=== PATIENT | female | born 1940 | race Caucasian/White ===

== ENCOUNTER → 2018-06-09 13:44 | Outpatient (CLI) | payer MEDICARE, OTHER, SELFPAY ==
[2018-06-09 13:53] LABS: Bacteria Urine None Seen; RBC Urine None Seen (0-5/HPF); WBC Urine None Seen (0-5/HPF)
[2018-06-09 14:56] LABS: Appearance Urine UA CLEAR; Bilirubin Urine UA NEGATIVE (NEGATIVE); Color Urine UA YELLOW; Glucose Urine UA NEGATIVE (Normal); Ketones Urine UA NEGATIVE (NEGATIVE); Leukocyte Esterase Urine UA NEGATIVE (NEGATIVE); Nitrite Urine UA Negative (Negative); Occult Blood Urine UA NEGATIVE (Negative); Protein Urine UA NEGATIVE (Negative); Urobilinogen Urine UA 0.2 E.U./dL (0.2)
[2018-06-09 15:00] LABS: Add Manual Diff / Slide Review NO; Basophils Percent Auto 0.4 % (0-2); Eosinophils Percent Auto 0.8 % (2-4); Hemoglobin 14.1 g/dL (12.0-16.0); Lymphocytes Percent Auto 20.2 % (25-40); Mean Corpuscular HGB Conc 34.4 % (30-36); Mean Corpuscular Hemoglobin 30.6 PG (26-34); Monocytes Percent Auto 4.6 % (3-14); Neutrophils Absolute Auto 4300 /uL (3000-5900); Platelet Count 225 X10^3/uL (150-400); Red Blood Cell Count 4.61 X10^6/uL (4.0-5.2); Red Cell Distribution Width 13.9 % (11.6-14.8); White Blood Cell Count 5.9 X10^3/uL (4.5-11.0)
[2018-06-09 15:02] LABS: Culture Indicated Urine Cult Not Indicated; Urine Comments Microscopic Normal
[2018-06-09 15:30] LABS: BUN Creatinine Ratio 21.4 (6-22); Blood Urea Nitrogen 15 mg/dL (7-17); Calcium 9.3 mg/dL (8.4-10.2); Carbon Dioxide 32 mmol/L (22-32); Chloride 102 mmol/L (98-107); Estimated Glomerular Filt Rate > 60.0 mL/min (>60); Glucose 90 mg/dL (80-110); HEMOLYSIS < 15 (0-50); Potassium 4.4 mmol/L (3.4-5.1); Sodium 143 mmol/L (137-145)
[2018-06-09 15:43] LABS: Hemoglobin A1C% w Est Avg Glu 5.2 % (4.0-6.0)
== END ==
PROVIDERS: Visit Provider Orthopaedic Surgery
DX: Z01.818 Encounter for other preprocedural examination (principal); Z01.812 Encounter for preprocedural laboratory examination; N39.9 Disorder of urinary system, unspecified; R73.09 Other abnormal glucose
CPT/HCPCS: 36415; 80048; 81001; 83036; 85025; 93005

== ENCOUNTER 2018-06-15 05:57 | Inpatient (IN) | payer MEDICARE, OTHER, SELFPAY ==
[2018-06-14 07:52] VITALS: BMI 23.6
[2018-06-15] VITALS (16 sets, daily range): BP systolic 83–140; BP diastolic 50–86; PULSE 56–77; RESP 10–18; TEMP 35.7–36.6; O2SAT 95–98; BMI 23.6
--- NOTE | 2018-06-15 06:00 | DI.RAD.S_ITS ---
PROCEDURE: XR HIP W PEL IF DONE RT 2V INDICATIONS: postop TECHNIQUE: AP pelvis and lateral view of the right hip acquired. COMPARISON: SNO Outside Film, CR, XR PELVIS WITH BILATERAL HIPS 5 VIEWS, 03/30/2018, 15:43. FINDINGS: Bones: Patient is status post right hip arthroplasty, with hardware components in expected positions. The hip joint appears congruent. The visualized bony structures appear intact. Soft tissues: Overlying postoperative changes are noted. No suspicious soft tissue densities. IMPRESSION: Normal alignment after right total hip arthroplasty. Moderately severe to severe left hip degenerative osteoarthritis is noted, with near [id number] articulation. This has not progressed from the visualized appearance from pelvis and bilateral hip plain films (preoperative) 03/30/18. Dictated by: Myles Padilla M.D. on 06/15/2018 at 11:44 Approved by: Myles Padilla M.D. on 06/15/2018 at 11:45
[2018-06-15] MEDS: LACTATED RINGERS 1,000 ML 42 ML IV ×2 (06:55→11:28)
[2018-06-15] MEDS: VANCOMYCIN 1,000 MG/200 ML FROZ.PIGGY 200 MG IV (07:01)
[2018-06-15] MEDS: ACETAMINOPHEN 325 MG TABLET 975 MG PO ×3 (07:06→20:13)
[2018-06-15] MEDS: CELECOXIB 200 MG CAPSULE PO (07:07)
[2018-06-15] MEDS: PREGABALIN 75 MG CAPSULE PO (07:07)
[2018-06-15] MEDS: MIDAZOLAM 2 MG/2 ML VIAL IV (07:47)
--- NOTE | 2018-06-15 07:51 | PM.PREOP ---
Pre-operative Note Interval Note Pre-op Check: Yes History & Physical Reviewed by Physician and Yes Exam Performed Changes: No
--- NOTE | 2018-06-15 07:51 | PM.OP.1 ---
Operative Date/Time/Diagnoses Date of procedure: 06/15/18 Time of procedure: 10:30 Pre-op diagnosis: right hip OA Post-op diagnosis: same Procedure & Clinicians Procedure: right total hip arthroplasty Same procedure as scheduled: Yes Indications: The patient has had progressively worsening right hip pain with radiographic changes consistent with arthritis. Non-operative management has failed and the patient has requested total hip replacement. The risks, benefits and alternatives to surgery were discussed with the patient prior to proceeding. Risks discussed included, but were not limited to, failure to relieve pain, leg length discrepancy, dislocation, stiffness, infection, nerve damage, deep venous thrombosis, pulmonary embolism, stroke, coma, heart attack, permanent paralysis and , as well as the potential need for eventual revision of the prosthetic. Surgeon: Ryann Wilson Shoulder Puncher: Brian Gerard Anesthesia Type: General and Spinal Operative Notes Findings: Severe right hip osteoarthritis, good stability Closure Type: primary Specimen(s): none sent Implants & Drains: [employer] size 52 cup, 52 x 36 head, +0, size 6 standard anthology Estimated Blood Loss (mL): 300 Blood products transfused: none Procedure in detail: The patient was brought to the operating room. Patient was carefully positioned in the supine position. Time-out was performed and antibiotics were given. Anesthesia was induced. She was positioned in the on the table in order to allow hyperextension of the hip. Bilateral lower extremities were prepped and draped in a standard sterile fashion. An anterior incision was made 1 fingerbreadth lateral to the anterior superior iliac spine and extended distally towards the greater trochanter. Dissection was carried out through skin and subcutaneous tissues. The skin and subcutaneous tissues were carefully injected with Marcaine with epi. Superficial hemostasis was achieved. The fascia over the tensor fascia kelin was defined and incised with a knife. Two Allis clamps were used to grasp the fascia. Tensor fascia kelin was retracted laterally. A gelpi retractor was placed. Dissection was carried out down along the neck. The circumflex vessels were carefully identified and cauterized with the Aqua Mantis. There was good visualization of the femoral neck. A Cobra was placed superior to the neck and the gluteus fibers were carefully stripped from that superior aspect of the capsule. A 2nd retractor was placed along the inferior aspect of the neck. The rectus insertion along the capsule was released. A 3rd retractor that was then gently placed over the rim of the acetabulum under the rectus. Capsule was carefully incised and released from the intertrochanteric line circumferentially superior to the mid sagittal line and inferiorly to the mid sagittal line until the lesser trochanter was palpable. A tag stitch was placed both in the superior and inferior limb of the capsular insertion. Along the acetabulum capsule was also released up to the mid sagittal 12:00 position. Portion of the labrum was resected. A saw was used to perform an osteotomy at the level of the intertrochanteric line and the junction of the superior femoral neck leaving approximately 1 finger breath of residual inferior neck above the lesser trochanter. A 2nd cut was made along the femoral neck at the base of the head and a napkin ring of neck was removed. Corkscrew was placed in the femoral head and the head was removed without difficulty. Retractors were then repositioned around the acetabulum. Residual labrum was resected and additional osteophytes were removed. A Reamer that was 4 mm below the templated size was placed by hand in the acetabulum and it was reamed to centralize the acetabulum. It was then reamed up to 2 under the templated size fluoroscopy was brought in to confirm the position of the reaming and depth of reaming. I reamed 1 under the anticipated size and touch the rim with line to line reaming. A trial cup was placed and noted that it was appropriately sized and fluoroscopy confirmed position and depth. The component was open and inserted without difficulty fluoroscopic imaging was used to confirm that the cup had been adequately seated and was well positioned. Neutral poly liner was placed. The cup was tested and noted to be stable. Attention was then directed to the femur. The femur was gently hyperextended additional capsular release was performed as needed in order to allow adequate visualization of the proximal femur with elevation of the femur. Patient was placed in a hyperextended slightly abducted position with maximum external rotation. Box osteotome was used to check for any residual neck as well as sclerotic bone along the trochanter. [place] pepper was placed in the femur. Additional broaching was performed. Canal finder was used to determine the alignment of the canal and position. Size 1 broach was placed. The canal was then appropriately broached up to the templated size as long as there was adequate stability of the broach and serial advancement of the broach without excessive impingement. Specific attention was directed at avoiding varus attempting to direct the distal aspect of the approach more anteriorly and avoiding excessive anteversion. Trial reduction showed acceptable range of motion, good stability, no posterior impingement, jew of leg length and appropriate lateral shuck. I also hyperflexed the hip and checked that there was no impingement anteriorly and there was good stability with flexion, abduction and internal rotation. Final neutral poly was placed without difficulty. Marcaine and Exparel were injected. The stem was placed without difficulty. Repeat trial reduction and x-ray showed acceptable overall position, length, and no evidence of the femoral fracture. Final head was placed. Wound was meticulously irrigated with normal saline. The hip was reduced and additional Exparel and Marcaine were injected. The capsule was closed with interrupted nonabsorbable sutures. The fascia of the tensor was closed with interrupted and running Vicryl. No drain was placed. Any tensor fascia kelin muscle that appeared to be contused or injured which was a minimal amount was carefully resected. Capsule around the tensor was injected with Exparel and Marcaine. The skin was closed with barbed stitches for the subcutaneous tissue and skin. We also used surgical glue. The wound was dressed sterilely. Brief Betadine soak was also used and was meticulously irrigated with normal saline. Patient was transferred to recovery room in satisfactory condition. Complications: none Condition: stable Disposition: Acute Care Plan for aftercare: The patient will be maintained on a standard total hip replacement protocol with weight bearing as tolerated and anterior hip precautions. The patient will receive Aspirin and sequential compression devices for DVT prophylaxis. The patient will be discharged home when safe for the home environment.
[2018-06-15] MEDS: CEFAZOLIN 2 GM/100 ML FROZ.PIGGY IV ×3 (08:05→23:38)
--- NOTE | 2018-06-15 08:44 | SUR.OPER ---
Supine, head on pillow, torso on pink pad positioner. Iliac crest at flex of foot end of table. Gel roll under operative hip. Both arms secured on arm boards <90 degrees abduction.
[2018-06-15] MEDS: BUPIVACAINE LIPOSOME 266 MG/20 ML VIAL INJ (08:56)
[2018-06-15] MEDS: LIDOCAINE 1% W/EPI INJ 20 ML INJ (08:57)
[2018-06-15] MEDS: BUPIVACAINE 0.25% W/ EPI VIAL 50 ML INJ (10:38)
[2018-06-15] MEDS: POVIDONE-IODINE 15 ML, SODIUM CHLORIDE 0.9% 250 ML TOP (10:39)
--- NOTE | 2018-06-15 11:45 | SUR.PHASEI ---
NOTIFIED DR. DANIELS REGARDING LOW BP/ HE VERBALLY ORDERED 500ML LR FLUID BOLUS. NO FURTHER TREATMENT ADVISED AT THIS TIME
--- NOTE | 2018-06-15 12:06 | SUR.PHASEI ---
pATIENT PLACED IN REV TRENDELENBERG/ NO IMPROVEMENT IN BP. 87/[address] DYKES NOTIFIED NO FURTHER TREATMENT ADVISED. WANTS HER TO GO TO ROOM AND HAVE LUNCH. REPORT CALLED TO FLOOR AND PATIENT TRANSFERRED. AWAKE ALERT NO DISTRESS NOTED. PATIENT EATTING ICE CHIPS ON ROOM AIR.
[2018-06-15] MEDS: LACTATED RINGERS 1,000 ML 125 ML IV ×2 (13:16→20:37)
--- NOTE | 2018-06-15 13:24 | PC.ADMIT ---
Admission Note: Arrived to room 102 from PACU at 1230 via bed. Alert and oriented x2. Lungs clear bilaterally, oxygen sats 96% RA, instructed on use of IS. bp 90/53, pt is asymptomatic. Denies pain. Numbness to BLEs present post spinal extending from mid-thigh to toes. No void at this time. Pulses strong and palpable bilaterally, able to move all extremities. Aquacel dressing to right hip C/D/I. Oriented to room and to call light/bed/tv controls. Bed alarm on for safety. , John, at bedside. Belongings at bedside - declines any valuables to lock-up. The patient,Khadra Mendez,78 y/o, was given written information regarding hospital policies, unit procedures and contact persons. Patient's smoking status: Former smoker. Vital Signs - 8 hr 06/15/18 06:43 06/15/18 11:00 06/15/18 11:05 Temperature 97.1 F L 96.8 F L 97 F L Pulse Rate 77 69 65 Respiratory Rate 16 12 10 L Blood Pressure 140/86 83/50 L 86/55 L Pulse Oximetry 97 97 97 06/15/18 11:10 06/15/18 11:25 06/15/18 11:29 Temperature Pulse Rate 68 68 62 Respiratory Rate 10 L 13 10 L Blood Pressure 84/54 L 91/57 L 89/57 L Pulse Oximetry 97 98 97 06/15/18 11:35 06/15/18 11:42 06/15/18 11:47 Temperature 96.8 F L 97.4 F L Pulse Rate 63 65 65 Respiratory Rate 13 10 L 10 L Blood Pressure 88/54 L 90/53 L 83/54 L Pulse Oximetry 97 98 95 06/15/18 12:00 06/15/18 12:36 06/15/18 13:00 Temperature 97.8 F 96.4 F L 96.6 F L Pulse Rate 71 75 69 Respiratory Rate 12 12 14 Blood Pressure 93/57 L 119/55 L 90/53 L Pulse Oximetry 97 96 97
--- NOTE | 2018-06-15 16:01 | PC.NURSE ---
Pt alert and oriented, denies pain, denies nausea. Diet advanced to Regular for meal. Therapy notified pt requesting activity. Pt and family asking to be moved to a room on acute care. Coordinator notified. Report given to MICHELLE Jarvis. Pt moved to room 219.
--- NOTE | 2018-06-15 16:16 | PT.IIE ---
Current Diagnoses Bilateral primary osteoarthritis of hip (06/15/18) Surgery Performed Operation Date: 06/15/18 07:45 Actual Procedures p Total Hip Arthroplasty/Anterior Approach(Right) - Ryann Wilson MD Surgical History (Last Updated 06/14/18 @ 09:17 by Kaur Gleason RN) H/O: (Acute) History of appendectomy (Acute) History of colonoscopy (Acute) History of thoracotomy (Acute) Medical History (Last Reviewed 06/15/18 @ 16:52 by Edy Shafer, PT, [place]) Arthritis (Acute) Bilateral hip pain (Acute) Degenerative joint disease (Acute) Diverticulitis (Acute) GERD (gastroesophageal reflux disease) (Acute) History of hysterectomy (Acute) Impaired vision (Acute) Osteoporosis (Acute) Postmenopausal (Acute) Physical Therapy Inpatient Evaluation/Re-Eval M1 PT/OT-IP Prior Functional Status Start: 06/15/18 17:04 Freq: NEEDED Status: Active Protocol: Document 06/15/18 16:16 AB (Rec: 06/15/18 17:20 AB [email or web address]) Medical Review Prior Functional Status Medical History Reviewed Yes Communication able to make needs known Mobility and Gait stated that she is independent with all mobilities and ambulation without AD Social History Household Members spouse Living Arrangements House Number of Floors (Floors) Two Floors Number of Stairs To Enter/Railing? pt set up bed on main level has 2 steps to enter with L rail ascending Home Environment Standard Height Toilet Tub/Shower Home Equipment Front Wheel Walker Straight Cane Hand Held Shower Employment Status Retired Additional Social History Comment has counter next to toilet to assist her with sit to stand M2 PT-IP Current Condition Start: 06/15/18 17:04 Freq: NEEDED Status: Active Protocol: Document 06/15/18 16:16 AB (Rec: 06/15/18 17:20 AB [email or web address]) Physical Therapy Current Condition Current Condition Evaluation Date 06/15/18 Treatment Diagnosis s/p R MAGDALENA anterior approach Onset Date 06/15/18 Precautions Anterior Hip Precautions No Hip Extension No Hip External Rotation Weight Bearing Status Weight Bearing Status Weight Bear as Tolerated M3 PT-IP Subjective Start: 06/15/18 17:04 Freq: NEEDED Status: Active Protocol: Document 06/15/18 16:16 AB (Rec: 06/15/18 17:20 AB [email or web address]) Subjective Physical Therapy Visit Type Type Initial Evaluation Visit Start Time 16:16 Visit Stop Time 17:01 Total Visit Minutes 45 Number of SALES ENGINEERING MANAGER Visits 0 Physical Therapy Visit Comments Patient Comments pt agreeable to do PT Therapy Pain Assessment Pain Present Pain Present Denied Pain M4 PT-IP Mobility and Gait Start: 06/15/18 17:04 Freq: NEEDED Status: Active Protocol: Document 06/15/18 16:16 AB (Rec: 06/15/18 17:20 AB [email or web address]) PT-Bed Mobility Assessment Supine to Sit Supine to Sit Standby Assistance Sit to Supine Sit to Supine Standby Assistance PT-Transfer Assessment Sit to and From Stand Sit to and from Stand Standby Assistance Equipment Transfer Assistive Device Gait Belt Orthotic/Prosthetic Devices or Brace: No Gait Assessment Gait Gait Assistance Required: Contact Guard Assist Distance (Feet) 20 Able to Maintain Weight Bearing Status Yes During Gait Assistive Devices Assistive Device Gait Belt Front Wheeled Walker Orthotic/Prosthetic Devices or Brace: No Gait Deviations General Gait Pattern Decreased Stride Length Decreased Feet Clearance Factors Limiting Gait Function Factors Limiting Gait Function Decreased Activity Tolerance Decreased Strength Limited Range of Motion Pain Poor Balance Poor Safety Awareness Comments Gait Comments BP initially was 96/43 but increased to 102/57 during sitting and standing at end of tx session: BP 107/ 58 PT-Balance Assessment Sitting Balance and Reactions Static Sitting Balance Ability Good Dynamic Sitting Balance Ability Good Standing Balance and Reactions Static Standing Balance Ability Fair Dynamic Standing Balance Ability Fair Device Used FWW M5 PT-IP Objective Assessments Start: 06/15/18 17:04 Freq: NEEDED Status: Active Protocol: Document 06/15/18 16:16 AB (Rec: 06/15/18 17:20 AB [email or web address]) Orientation Orientation/Cognition Level of Alertness Alert Orientation Name Age Birthday Month Date Year Day of Week Place Situation Safety Awareness Understands Safety Issues Gross Range of Motion Lower Extremity ROM Assessment Within Functional Limits Strength Lower Extremity Strength Assessment Right Impaired Hip 4-/5 Knee 3+/5 M6 PT-IP Treatment Start: 06/15/18 17:04 Freq: NEEDED Status: Active Protocol: Document 06/15/18 16:16 AB (Rec: 06/15/18 17:20 AB [email or web address]) Physical Therapy Treatment Education Education Provided Precautions Weight Bearing Status Post-Op Packet Safety M7 PT-IP Assessment and Plan Start: 06/15/18 17:04 Freq: NEEDED Status: Active Protocol: Document 06/15/18 16:16 AB (Rec: 06/15/18 17:20 AB [email or web address]) PT Summary Assessment and Plan Potential Rehabilitation Potential Good Status of Condition at Evaluation Stable Summary Impairments Pain ROM Strength Balance Coordination Sensation Cognition Bed Mobility Transfers Gait Activity Tolerance Assessment Summary pt doing well with mobility and plans to go home with spouse to assist her. pt with decrease BP and c/o slight lightheadedness limiting mobility at this time. pt will likely improve during hospital stay and may go home when medically stable. stair climbing will be completed prior to d/c. Goals Bed Mobility Goal Standby Assistance Transfer Goal Standby Assistance Gait Goal Standby Assistance Gait Distance 100 Other Goals up/down 2 steps with L rail ascending Days to Meet Goals 2 Frequency of Treatment Frequency Of Treatment Twice a Day Treatment Plan Physical Therapy Treatment Plan Bed Mobility Training Transfer Training Gait Training Therapeutic Exercise Balance Retraining Post Op Education Discharge Planning Hot or Cold Pack Neuromuscular Re-ed Coordination Retraining Manual Therapy Other Recommendations and Next Treatment ambulation, stair climbing, Focus caregiver training Recommendations To Nursing Amount of Assist Needed 1 Person Assist Discharge Recommendations PT Discharge Recommendations Home with Assistance Outpatient PT
[2018-06-15] MEDS: ASPIRIN EC 81 MG TABLET PO (20:12)
[2018-06-15] MEDS: DOCUSATE 100 MG CAPSULE PO (20:13)
[2018-06-15] MEDS: INFLUENZA VACCINE 0.5 ML SYRINGE IM (20:15)
--- NOTE | 2018-06-15 22:52 | PC.NURSE ---
06/15 2200: very pleasant pt with at bedside. denies presence of pain but and states to have sensation back to lower extremities CMS intact with dressing c/d/i. Up to bathroom with one person assist. Has some low BPs but asymptomatic, otherwise VSS on RA
--- NOTE | 2018-06-16 00:28 | PC.NURSE ---
Pt. & spouse sound asleep, pt. snoring lightly. Will monitor & assess when she wakes up.
[2018-06-16 02:01] VITALS: BP 96/62; PULSE 59; RESP 16; TEMP 36.2; O2SAT 96
[2018-06-16 05:50] LABS: Hematocrit 33.3 % (36-46); Hemoglobin 11.4 g/dL (12.0-16.0)
[2018-06-16 06:10] VITALS: BP 101/54; PULSE 60; RESP 16; TEMP 36.2; O2SAT 97
[2018-06-16] MEDS: SODIUM CHLORIDE 0.9% FLUSH 10 ML IV (06:10)
[2018-06-16 07:00] VITALS: BP 111/57; PULSE 59; RESP 18; TEMP 36.6; O2SAT 99
--- NOTE | 2018-06-16 07:55 | PC.NURSE ---
Addendum entered by Mehreen Brock R.N. 06/16/18 11:59: concerns. IV was removed. Pt has all belongings packed up are going to wait and have lunch Original Note: Addendum entered by Meheren Brock R.N. 06/16/18 11:51: reviewed d/c instructions with patient and spouse at bedside, WBAT, keep incision dressing c/d/i able to shower with dressing in place. reviewed anterior hip precautions. reviewed medications with last dose. answered all questions and Original Note: Day shift Pt assisted from bed to bathroom, followed anterior hip precautions. pt moving really well denies any dizziness or lightheaded. dressing to left hip is c/d/i. 1P SBA with fww. spouse at bedside. +CMS with strong pulses. pt sitting up in chair call light within reach. rates pain 1/10 at this time after activity.
--- NOTE | 2018-06-16 09:30 | PT.IPTN ---
Current Diagnoses Bilateral primary osteoarthritis of hip (06/15/18) Surgery Performed Operation Date: 06/15/18 07:45 Actual Procedures p Total Hip Arthroplasty/Anterior Approach(Right) - Ryann Wilson MD Physical Therapy Treatment Note M2 PT-IP Current Condition Start: 06/15/18 17:04 Freq: NEEDED Status: Active Protocol: Document 06/15/18 16:16 AB (Rec: 06/15/18 17:20 AB [email or web address]) Physical Therapy Current Condition Current Condition Evaluation Date 06/15/18 Treatment Diagnosis s/p R MAGDALENA anterior approach Onset Date 06/15/18 Precautions Anterior Hip Precautions No Hip Extension No Hip External Rotation Weight Bearing Status Weight Bearing Status Weight Bear as Tolerated M3 PT-IP Subjective Start: 06/15/18 17:04 Freq: NEEDED Status: Active Protocol: Document 06/16/18 09:28 GGD (Rec: 06/16/18 11:37 GGD [email or web address]) Subjective Physical Therapy Visit Type Type Treatment Note Visit Start Time 09:00 Visit Stop Time 09:28 Total Visit Minutes 25 Number of INVESTIGATION DIVISION SERGEANT Visits 1 Physical Therapy Visit Comments Patient Comments Pt hopes to go home today. Therapy Pain Assessment Pain Present Pain Present Pain Reported Location Right Hip Scale Used Pt states it hurts a little. M4 PT-IP Mobility and Gait Start: 06/15/18 17:04 Freq: NEEDED Status: Active Protocol: Document 06/16/18 09:28 GGD (Rec: 06/16/18 11:37 GGD [email or web address]) PT-Bed Mobility Assessment Supine to Sit Supine to Sit Standby Assistance PT-Transfer Assessment Sit to and From Stand Sit to and from Stand Standby Assistance Equipment Transfer Assistive Device Gait Belt Gait Assessment Gait Gait Assistance Required: Contact Guard Assist Distance (Feet) 350 Assistive Devices Assistive Device Gait Belt Front Wheeled Walker Gait Deviations General Gait Pattern Decreased Stride Length Decreased Feet Clearance Factors Limiting Gait Function Factors Limiting Gait Function Decreased Activity Tolerance Decreased Strength Limited Range of Motion Pain Stair Climbing Assessment Evaluation Level of Assist On Stairs Contact Guard Assistance Devices Stair Climbing Assistive Devices Left Railing Technique/Endurance Stair Climbing Direction Ascend and Descend Stair Climbing Technique Step to Step Number of Steps Climbed 3 Query Text: Stair Climbing Set # Repetitions (reps) 1 M5 PT-IP Objective Assessments Start: 06/15/18 17:04 Freq: NEEDED Status: Active Protocol: Document 06/15/18 16:16 AB (Rec: 06/15/18 17:20 AB [email or web address]) Orientation Orientation/Cognition Level of Alertness Alert Orientation Name Age Birthday Month Date Year Day of Week Place Situation Safety Awareness Understands Safety Issues Gross Range of Motion Lower Extremity ROM Assessment Within Functional Limits Strength Lower Extremity Strength Assessment Right Impaired Hip 4-/5 Knee 3+/5 M6 PT-IP Treatment Start: 06/15/18 17:04 Freq: NEEDED Status: Active Protocol: Document 06/16/18 09:28 GGD (Rec: 06/16/18 11:37 GGD [email or web address]) Physical Therapy Treatment Education Education Provided Precautions M7 PT-IP Assessment and Plan Start: 06/15/18 17:04 Freq: NEEDED Status: Active Protocol: Document 06/16/18 09:28 GGD (Rec: 06/16/18 11:37 GGD [email or web address]) PT Summary Assessment and Plan Summary Assessment Summary Pt improving with mobility. She was safe and stable with gait and stair mobility. She has good awareness of her hip precautions. Frequency of Treatment Frequency Of Treatment Twice a Day Treatment Plan Other Recommendations and Next Treatment ambulation, stair climbing, Focus caregiver training Recommendations To Nursing Amount of Assist Needed 1 Person Assist Discharge Recommendations PT Discharge Recommendations Home with Assistance Outpatient PT
[2018-06-16] MEDS: ASPIRIN EC 81 MG TABLET PO (09:41)
[2018-06-16] MEDS: DOCUSATE 100 MG CAPSULE PO (09:41)
[2018-06-16] MEDS: ACETAMINOPHEN 325 MG TABLET 975 MG PO (09:41)
--- NOTE | 2018-06-16 11:31 | PM.DS.1 ---
History of Present Illness Date Patient Seen: 06/16/18 Time Patient Seen: 09:17 Chief complaint: [id number] Narrative: Pain is mild. Denies fever chills. No nausea vomiting. She has been ambulating with assistance to the restroom. home to assist her. Patient feels ready to be discharged home today. Otherwise without complaints. Discharge Providers Date of admission: 06/15/18 05:57 Consults: 06/15/18 12:37 Consult to Discharge Planning Routine Comment: Consult to Physical Therapy Evaluate & Treat Comment: Physician Instructions: post op MAGDALENA protocol Consult to Respiratory Therapy Evaluate & Treat Comment: Physician Instructions: Evaluate and treat 06/15/18 13:03 Consult to Pastoral Services Routine Comment: reflexed order from admission assessment. Discharge provider: Brian Gerard PA-C Summary Discharge Diagnosis: Status post right total hip arthroplasty, anterior approach Hospital Course: Patient has had progressively worsening right hip pain with radiographic changes consistent with severe osteoarthritis. Non op management has failed and patient has requested total hip replacement. Patient consented to the same. Patient taken to the operating room underwent a right total hip arthroplasty. Patient back in her room recovering well and is in stable condition. Patient received general and spinal anesthesia. Estimated blood loss 300 mL. Exam Vital Signs (past 8 hours): - 06/16/18 06:10 06/16/18 07:00 Temperature 97.2 F L 97.8 F Pulse Rate 60 59 L Respiratory Rate 16 18 Blood Pressure 101/54 L 111/57 L Pulse Oximetry 97 99 Oxygen Delivery Method Room Air Oxygen Flow Rate 0 Narrative Exam Narrative: 78-year-old female sitting in bedside chair in no apparent distress. Right hip dressing is clean, dry and intact. Motor functions intact distal right lower extremity. Right leg is warm and dry. Sensation grossly intact to light touch. Objective Labs Result Diagrams: 06/16/18 05:25 Labs: Laboratory Results - last 24 hr 06/15/18 06/16/18 12:30 05:25 Hgb 11.4 L Hct 33.3 L Nasal Screen MRSA (PCR) Negative for mrsa Discharge Plan Discharge Plan Patient Disposition: Home Discharge comment: DC home today Discharge Med Rec/Prescriptions Prescriptions: Continue multivitamin Tablet 1 tab PO DAILY RF: 0 glucosamine sulfate [Glucosamine] 500 mg Tablet 1,500 mg PO DAILY RF: 0 vitamin B complex Tablet 1 tab PO DAILY RF: 0 cholecalciferol (vitamin D3) [Vitamin D3] 2,000 unit Capsule 2,000 unit PO DAILY RF: 0 omega 0-vzz-[id number]-fish oil [Fish Oil] 1,000 mg (120 mg-180 mg) Capsule 1,000 mg PO DAILY RF: 0 naproxen sodium [Aleve] 220 mg Tablet 440 mg PO BID RF: 0 biotin 5,000 mcg Tablet,Disintegrating 5,000 mcg PO DAILY RF: 0 calcium carbonate [Calcium 600] 600 mg calcium (1,500 mg) Tablet 600 mg PO DAILY RF: 0 Follow up/Referrals: Ryann Wilson MD [Physician] - (SNO in 5-7 days) Provider Discharge Instructions Diet: Diet as Tolerated Activity: WBAT, avoid hyperextension of hip, no straight leg raises for 6 weeks Cold/Heat Therapy: Ice as needed Skin/Wound/Dressing Care Report to your healthcare provider any signs of infection, such as:: chills, fever, night sweats, increased pain and unusual drainage Dressing: Keep clean and dry Visit Report/Discharge Packet Visit Report Forms: Stroke Signs & Symptoms Discharge Data Attending Provider: Ryann Wilson Admit Date/Time: 06/15/18 05:57 Quality VTE Deep Vein Thrombosis/Pulmonary Embolism Present on Admission: No
[2018-06-16] MEDS: IBUPROFEN 600 MG TABLET PO (11:40)
--- NOTE | 2018-06-16 11:50 | CM.DANOTE ---
Discharge Planning/Care Management DCP: assessment: case received, EMR reviewed, d/c to home order noted by glenna Gerard. Met with pt and her this morning. Introduced self and role. Pt is a 78 year old female who admitted yesterday for a planned R MAGDALENA: anterior. Surgeon: Jim Wilson Payer: Medicare and [facility] PCP: Dr. Barbara Michel She worked with PT yesterday and again this morning and has been ok'd for d/c home. Pt confirms she has outpt PT all set at [facility]. P: home today CM Discharge Assessment Start: 06/16/18 11:48 Freq: Status: Active Protocol: Document 06/16/18 11:48 ITV (Rec: 06/16/18 11:49 ITV [id number]) Discharge Planning Assessment Advance Directives? Yes Advance Directives on File No History Provided By Patient Family Member Medical Record Prior Living Arrangements House Household Members spouse Whiteboard Updated in Patient Room with Yes name and ext. # of Pipeliner Review Status In Process Next Review Type Continued Stay Review
== END 2018-06-16 13:35 | disposition home or self-care (01) | DRG 470 ==
LOC: AC 08:05 → ICU 10:49 → AC 16:11
PROVIDERS: Admitting Provider Orthopaedic Surgery; Visit Provider Orthopaedic Surgery
PROC: 0SR902Z Replacement of Right Hip Joint with Metal on Polyethylene Synthetic Substitute, Open Approach (ICD-10-PCS; CPT 27130; principal; 2018-06-15 07:45)
DX: M16.11 Unilateral primary osteoarthritis, right hip (principal); M81.0 Age-related osteoporosis without current pathological fracture; K21.9 Gastro-esophageal reflux disease without esophagitis
CPT/HCPCS: 36415; 73502; 76001; 85014; 85018; 87797; 90471; 90656; 97116; 97161; 97530; C1776; C9290; J0690; J2250; J2274; J3010; J3370; Q2038

== ENCOUNTER 2018-12-16 06:09 | Inpatient (IN) | payer MEDICARE, OTHER, SELFPAY ==
[2018-06-15 12:40] VITALS: BMI 23.6
[2018-11-11 10:17] VITALS: BMI 23.6
[2018-12-16] VITALS (15 sets, daily range): BP systolic 87–151; BP diastolic 43–92; PULSE 59–82; RESP 10–18; TEMP 35.9–36.8; O2SAT 95–100; BMI 24.5
--- NOTE | 2018-12-16 | DI.RAD.S_ITS ---
PROCEDURE: XR HIP W PEL IF DONE LT 2V INDICATIONS: INTEROPERATIVE LEFT HIP TECHNIQUE: 3 view(s) of the hip acquired. COMPARISON: [facility] [place], [place], XR PELVIS WITH BILATERAL LATERAL HIPS, 07/30/2018, 11:08. FINDINGS: 3 intraoperative fluoroscopy images demonstrate left hip arthroplasty and prosthesis placement. IMPRESSION: Left hip arthroplasty and prosthesis placement. Dictated by: Isaac Lara M.D. on 12/16/2018 at 11:46 Approved by: Isaac Lara M.D. on 12/16/2018 at 11:47
--- NOTE | 2018-12-16 06:00 | DI.RAD.S_ITS ---
PROCEDURE: XR HIP W PEL IF DONE LT 2V INDICATIONS: prosthesis placement TECHNIQUE: 2 view(s) of the hip acquired. COMPARISON: [facility], [place], XR HIP W PEL IF DONE LT 2V, 12/16/2018, 8:26. FINDINGS: Bones: Patient is status post left hip arthroplasty, with hardware components in expected positions. The hip joint appears congruent. The visualized bony structures appear intact. Soft tissues: Overlying postoperative changes are noted. No suspicious soft tissue densities. IMPRESSION: Expected postoperative alignment left hip arthroplasty. Dictated by: Omar Austin M.D. on 12/16/2018 at 12:49 Approved by: Omar Austin M.D. on 12/16/2018 at 12:49
[2018-12-16] MEDS: VANCOMYCIN 1,000 MG/200 ML FROZ.PIGGY 200 MG IV (06:50)
[2018-12-16] MEDS: LACTATED RINGERS 1,000 ML 42 ML IV ×2 (06:50→10:56)
[2018-12-16] MEDS: ACETAMINOPHEN 325 MG TABLET 975 MG PO ×3 (07:13→20:38)
[2018-12-16] MEDS: PREGABALIN 75 MG CAPSULE PO (07:13)
[2018-12-16] MEDS: CELECOXIB 200 MG CAPSULE PO (07:13)
[2018-12-16] MEDS: CEFAZOLIN 2 GM/100 ML FROZ.PIGGY IV ×3 (07:55→23:50)
--- NOTE | 2018-12-16 08:49 | SUR.OPER ---
Head on pillow. Supine on fracture table with operative leg secured in traction boots/hana table.left Arm across chest, secured with sheet.right arm on armboard
[2018-12-16] MEDS: LIDOCAINE 1% W/EPI INJ 20 ML INJ (09:00)
[2018-12-16] MEDS: BUPIVACAINE 0.25% W/ EPI 50 ML VIAL 60 ML INJ (11:11)
[2018-12-16] MEDS: BUPIVACAINE LIPOSOME 266 MG/20 ML VIAL INJ (11:12)
[2018-12-16] MEDS: POVIDONE-IODINE 15 ML, SODIUM CHLORIDE 0.9% 250 ML TOP (11:12)
--- NOTE | 2018-12-16 12:23 | SUR.PHASEI ---
REPORT CALLED TO MICHELLE HORN ON ACUTE CARE FLOOR. PT IN STABLE CONDITION, VSS. IV SITE CLEAR AND INFUSING WITHOUT DIFFICULTLY. PT DENIES ANY PAIN/DISCOMFORT OR NAUSEA. PT DRSG TO SURGICAL SITE C/D/I. DULL SENSTATION R/T SPINAL, +PULSE AND +STRENGTH. PT TOLERATING ICE CHIPS WITHOUT ANY DIFFICULTLY. PT RESTING IN BED AND TALKING TO RN WHEN SPOKEN TO.
--- NOTE | 2018-12-16 12:37 | SUR.PHASEI ---
PT TRANSFERRED TO ACUTE CARE FLOOR IN STABLE CONDITION. PT ALERT AND TALKING TO RN DURING TRANSPORT. BEDSIDE REPORT GIVEN TO MICHELLE HORN UPON ARRIVAL. TRANSFERRED CARE OF PT TO MICHELLE HORN AT THAT TIME.
[2018-12-16] MEDS: LACTATED RINGERS 1,000 ML 125 ML IV ×2 (12:54→21:12)
--- NOTE | 2018-12-16 16:47 | PT.IIE ---
Current Diagnoses Unilateral primary osteoarthritis, left hip (12/16/18) Surgery Performed Operation Date: 12/16/18 07:45 Actual Procedures p Total Hip Arthroplasty/Anterior Approach(Left) - Ryann Wilson MD Surgical History (Last Updated 11/11/18 @ 11:22 by Patricia Blum, RN) History of total right hip arthroplasty (Acute 06/15/18) H/O: (Acute) History of appendectomy (Acute) History of colonoscopy (Acute) History of thoracotomy (Acute ~1996) Medical History (Last Updated 11/11/18 @ 11:22 by Patricia Blum RN) Pneumonia (Acute) Arthritis (Acute) Bilateral hip pain (Acute) Degenerative joint disease (Acute) Diverticulitis (Acute) GERD (gastroesophageal reflux disease) (Acute) History of hysterectomy (Acute ~1998) Impaired vision (Acute) Osteoporosis (Acute) Postmenopausal (Acute) Physical Therapy Inpatient Evaluation/Re-Eval M1 PT/OT-IP Prior Functional Status Start: 12/16/18 16:21 Freq: NEEDED Status: Active Protocol: Document 12/16/18 16:21 [facility] (Rec: 12/16/18 16:47 [facility] [email or web address]) Medical Review Prior Functional Status Medical History Reviewed Yes Mobility and Gait previous Right total hip anterior replacement in May 2018 and is doing really well with mobility and gait on the right side Social History Household Members spouse Living Arrangements House Number of Floors (Floors) One Floor Number of Stairs To Enter/Railing? There are 2 stairs to go into the house and two stairs to go up to the shower Home Equipment Front Wheel Walker Employment Status Retired M2 PT-IP Current Condition Start: 12/16/18 16:21 Freq: NEEDED Status: Active Protocol: Document 12/16/18 16:21 [facility] (Rec: 12/16/18 16:47 [facility] [email or web address]) Physical Therapy Current Condition Current Condition Evaluation Date 12/16/18 Treatment Diagnosis Left anterior MAGDALENA Precautions Anterior Hip Precautions No Hip Extension No Hip External Rotation Weight Bearing Status Weight Bearing Status Weight Bear as Tolerated M3 PT-IP Subjective Start: 12/16/18 16:21 Freq: NEEDED Status: Active Protocol: Document 12/16/18 16:21 [facility] (Rec: 12/16/18 16:47 [facility] [email or web address]) Subjective Physical Therapy Visit Type Type Initial Evaluation Visit Start Time 15:30 Visit Stop Time 16:00 Total Visit Minutes 30 Physical Therapy Visit Comments Patient Comments The patient is alert and sitting up in bed, she reports she currently has no pain but has felt a little nausea and a little light headed Patient Goals The patients goals with her MAGDALENA were to decrease pain with weightbearing activities. Her goal is to be D/C home tommorrow with her . She starts outpatient PT on Therapy Pain Assessment Pain When Pain Assessed At Rest Pain Present Pain Present Denied Pain M4 PT-IP Mobility and Gait Start: 12/16/18 16:21 Freq: NEEDED Status: Active Protocol: Document 12/16/18 16:21 [facility] (Rec: 12/16/18 16:47 [facility] [email or web address]) PT-Bed Mobility Assessment Rolling Type of Rolling Roll to Left Level of Assist Standby Assistance Supine to Sit Supine to Sit Standby Assistance Sit to Supine Sit to Supine Minimal Assistance Scooting Scooting Up and Down in Bed Standby Assistance PT-Transfer Assessment Sit to and From Stand Sit to and from Stand Contact Guard Assistance Equipment Transfer Assistive Device Gait Belt Transfer Ability Level of Assist Standby Assistance Gait Assessment Gait Gait Assistance Required: Contact Guard Assist Able to Maintain Weight Bearing Status Yes During Gait Assistive Devices Assistive Device Gait Belt Front Wheeled Walker Gait Deviations General Gait Pattern Step-to Gait Factors Limiting Gait Function Factors Limiting Gait Function Decreased Sensation Decreased Strength Comments Gait Comments Khadra stood at the edge of the bed for 3 min as she felt a bit light headed, she then began to feel as if she was voiding, she was able to walk to the bathroom with the fww and CGA for toileting, she returned to bed with CGA for gait and no increase in nausea or light headed symptoms Stair Climbing Assessment Comments Stair Climbing Comments Needs to be able to do 2 steps for home PT-Balance Assessment Sitting Balance and Reactions Static Sitting Balance Ability Normal Dynamic Sitting Balance Ability Normal Standing Balance and Reactions Static Standing Balance Ability Good Dynamic Standing Balance Ability Good Device Used fww M5 PT-IP Objective Assessments Start: 12/16/18 16:21 Freq: NEEDED Status: Active Protocol: Document 12/16/18 16:21 [facility] (Rec: 12/16/18 16:47 [facility] [email or web address]) Orientation Orientation/Cognition Level of Alertness Alert Orientation Name Age Birthday Month Date Year Day of Week Place Situation Language Function Ability No Deficits Noted Safety Awareness Understands Safety Issues Memory Description No Deficits Noted Strength Lower Extremity Strength Assessment Left Impaired Sensation Assessment Sensation Gross Sensation Left LE Impaired Comments Sensation Comments still a little numb from nerve block with surgery Muscle Tone Muscle Tone WNL Yes M6 PT-IP Treatment Start: 12/16/18 16:21 Freq: NEEDED Status: Active Protocol: Document 12/16/18 16:21 [facility] (Rec: 12/16/18 16:47 [facility] [email or web address]) Physical Therapy Treatment Exercises Exercises Ankle Pumps Quad Sets Heel Slides Education Education Provided Precautions Weight Bearing Status Post-Op Packet Safety M7 PT-IP Assessment and Plan Start: 12/16/18 16:21 Freq: NEEDED Status: Active Protocol: Document 12/16/18 16:21 [facility] (Rec: 12/16/18 16:47 [facility] [email or web address]) PT Summary Assessment and Plan Potential Rehabilitation Potential Excellent Status of Condition at Evaluation Stable Summary Impairments Pain ROM Strength Balance Assessment Summary Khadra is day one s/p L MAGDALENA and doing very well. She did not have pain before or following PT today. She is still a little numb in the left LE from the nerve block. She was able to transfer to sitting with SBA, sit-stand transfer with CGA, she ambulated to the bathroom with fww and CGA to void. She was able to void and then ambulated back to bed with CGA . She needed Min A to help with left leg getting back in bed. She was educated on her MAGDALENA anterior approach precautions and exercises. She was given a post op packet with instructions for home. Ice was placed over the left hip and call light was placed within reach. Her was present for her treatment. The patient would like education on getting out on the right side of the bed as this is the side she sleeps on at home. She will also need stair training prior to DC. Goals Bed Mobility Goal Independent Gait Goal Contact Guard Assistance Gait Distance 50 feet Other Goals The patient is able to ambulate up 2 or more stairs prior to DC home Frequency of Treatment Frequency Of Treatment Twice a Day Treatment Plan Physical Therapy Treatment Plan Bed Mobility Training Transfer Training Gait Training Therapeutic Exercise Post Op Education Hot or Cold Pack Other Recommendations and Next Treatment Please work on transfers out Focus of bed as the patient would like to try getting out on the right side due to her sleeping on this side of the bed. Work on stairs prior to DC. The patient would like to go home tomorrow 12/17/18 Recommendations To Nursing Amount of Assist Needed 1 Person Assist Discharge Recommendations PT Discharge Recommendations Home Other Discharge Recommendations The patient has outpatient PT scheduled starting 12/13/18
[2018-12-16] MEDS: ONDANSETRON 4 MG/2 ML INJ IV (17:56)
--- NOTE | 2018-12-16 18:44 | PM.PREOP ---
Pre-operative Note Interval Note History & Physical reviewed/Exam performed by Physician: Yes Changes to H&P: No
--- NOTE | 2018-12-16 18:48 | P.OP_ITS ---
Operative Date/Time/Diagnoses Date of procedure: 12/16/18 Time of procedure: 08:03 Pre-op diagnosis: Left hip osteoarthritis Post-op diagnosis: same Procedure & Clinicians Procedure: Left total hip arthroplasty anterior approach Same procedure as scheduled: Yes Indications: The patient has had progressively worsening left hip pain with radiographic changes consistent with arthritis. Non-operative management has failed and the patient has requested total hip replacement. The risks, benefits and alternatives to surgery were discussed with the patient prior to proceeding. Risks discussed included, but were not limited to, failure to relieve pain, leg length discrepancy, dislocation, stiffness, infection, nerve damage, deep venous thrombosis, pulmonary embolism, stroke, coma, heart attack, permanent paralysis and , as well as the potential need for eventual revision of the prosthetic. Surgeon: Ryann Wilson Boat Designer: Luz Smith Anesthesia Type: General and Spinal Operative Notes Findings: Severe left hip arthritis, good stability Closure Type: primary Specimen(s): none sent Prosthetic devices, grafts, tissues, transplants, or devices: [employer] R3 52 cup, size 6 anthology standard offset, minus 3 x 36 poly Oxinium Estimated Blood Loss (mL): 250 Blood products transfused: none Procedure in detail: The patient was brought to the operating room. Patient was carefully positioned in the supine position. Time-out was performed and antibiotics were given. Anesthesia was induced. She was positioned in the on the hana table in order to allow hyperextension of the hip. The left lower extremity was prepped and draped in a standard sterile fashion. An anterior left hip incision was made 1 fingerbreadth lateral to the anterior superior iliac spine and extended distally towards the greater trochanter. Dissection was carried out through skin and subcutaneous tissues. The skin and subcutaneous tissues were carefully injected with Lidocaine with epi. Superficial hemostasis was achieved. The fascia over the tensor fascia kelin was defined and incised with a knife. Two Allis clamps were used to grasp the fascia. Tensor fascia kelin was retracted laterally. A gelpi retractor was placed. Dissection was carried out down along the neck. The circumflex vessels were carefully identified and cauterized with the Aqua Mantis. There was good visualization of the femoral neck. A Cobra was placed superior to the neck and the gluteus fibers were carefully stripped from that superior aspect of the capsule. A 2nd retractor was placed along the inferior aspect of the neck. The rectus insertion along the capsule was partially released. Capsule was carefully incised and released from the intertrochanteric line circumferentially superior to the mid sagittal line and inferiorly to the mid sagittal line until the lesser trochanter was palpable. A tag stitch was placed both in the superior and inferior limb of the capsular insertion. Along the acetabulum capsule was also released up to the mid sagittal 12:00 position. A portion of the labrum was resected. A saw was used to perform an osteotomy at the level of the intertrochanteric line and the junction of the superior femoral neck leaving approximately 1 finger breath of residual inferior neck above the lesser trochanter. A 2nd cut was made along the femoral neck at the base of the head and a napkin ring of neck was removed. Corkscrew was placed in the femoral head and the head was removed without difficulty. Retractors were then repositioned around the acetabulum. Residual labrum was resected and additional osteophytes were removed. A reamer that was 4 mm below the templated size was placed by hand in the acetabulum and it was reamed to centralize the acetabulum. It was then reamed up to 2 under the templated size and fluoroscopy was brought in to confirm the position of the reaming and depth of reaming. I reamed 1 under the anticipated size and touched the rim with line to line reaming. A trial cup was placed and noted that it was appropriately sized and fluoroscopy confirmed position and depth. The component was open and inserted without difficulty fluoroscopic imaging was used to confirm that the cup had been adequately seated and was well positioned. Neutral poly trial liner was placed. The cup was tested and noted to be stable. Attention was then directed to the femur. The femur was gently hyperextended additional capsular release was performed as needed in order to allow adequate visualization of the proximal femur with elevation of the femur. No traction was used. Using the table the leg was very gently extended and slowly externally rotated as well as aducted. Patient was placed in a hyperextended slightly abducted position with maximum external rotation. Box osteotome was used to check for any residual neck as well as sclerotic bone along the trochanter. [place] pepper was placed in the femur. Additional broaching was performed. Canal finder was used to determine the alignment of the canal and position. Size 1 broach was placed. The canal was then appropriately broached up to the templated size as long as there was adequate stability of the broach and serial advancement of the broach without excessive impingement. Specific attention was directed at avoiding varus attempting to direct the distal aspect of the broach more anteriorly and avoiding excessive anteversion. Trial reduction showed acceptable range of motion, good stability, no posterior impingement, congregation of leg length and appropriate lateral shuck. I also hyperflexed the hip and checked that there was no impingement anteriorly and there was good stability with flexion, abduction and internal rotation. Marcaine and Exparel were injected. The stem was placed without difficulty. R epeat trial reduction and x-ray showed acceptable overall position, length, and no evidence of the femoral fracture. Final head was placed. Wound was meticulously irrigated with normal saline. The hip was reduced and additional Exparel and Marcaine were injected. The capsule was closed with interrupted nonabsorbable sutures. The fascia of the tensor was closed with interrupted and running Vicryl. No drain was placed. Any tensor fascia kelin muscle that appeared to be contused or injured which was a minimal amount was carefully resected. Capsule around the tensor was injected with Exparel and Marcaine. The skin was closed with barbed stitches for the subcutaneous tissue and skin. We also used surgical glue. The wound was dressed sterilely. Brief Betadine soak was also used and was meticulously irrigated with normal saline. Patient was transferred to recovery room in satisfactory condition. Complications: none Condition: stable Disposition: Acute Care Plan for aftercare: The patient will be maintained on a standard total hip replacement protocol with weight bearing as tolerated and anterior hip precautions. The patient will receive Aspirin and sequential compression devices for DVT prophylaxis. The patient will be discharged home when safe for the home environment.
[2018-12-16] MEDS: ASPIRIN EC 81 MG TABLET PO (20:39)
[2018-12-16] MEDS: DOCUSATE 100 MG CAPSULE PO (20:39)
[2018-12-17 06:00] VITALS: BP 111/66; PULSE 65; RESP 16; TEMP 37.2; O2SAT 99
[2018-12-17 06:48] LABS: Hematocrit 35.5 % (36-46); Hemoglobin 11.9 g/dL (12.0-16.0)
[2018-12-17 07:00] VITALS: BP 118/75; PULSE 57; RESP 16
--- NOTE | 2018-12-17 07:32 | PM.DS.1 ---
History of Present Illness Date Patient Seen: 12/17/18 Chief complaint: LT MAGDALENA 12/16 Narrative: Patient seen bedside status post left anterior total hip arthroplasty postop day 1. Patient is doing well, her pain is well controlled and she has been up and about with a walker. She denies any nausea vomiting chest pain or shortness of breath. She would like to go home today. Discharge Providers Date of admission: 12/16/18 06:09 Discharge Date: 12/17/18 Consults: 12/16/18 06:00 Consult to Anesthesiology Routine Comment: Consulting Provider: Anesthesiologist Reason for consultation: Regional block for post operative pain control 12/16/18 12:44 Consult to Discharge Planning Routine Comment: Consult to Physical Therapy Evaluate & Treat Comment: Physician Instructions: post op MAGDALENA protocol Consult to Respiratory Therapy Evaluate & Treat Comment: Physician Instructions: Evaluate and treat Discharge provider: Luz Smith PA-C Summary Discharge Diagnosis: Left hip osteoarthritis Hospital Course: Patient was admitted to the hospital status post left total anterior hip arthroplasty with Dr. Wilson on 12/16/2018. Patient tolerated the procedure well with no major complications. They were transferred to the acute care floor where they were placed on the standard joint replacement pathway and protocol. They were seen by physical therapy who recommended that they be discharged home. They were stable and ready for discharge on 12/17/18. Status at Discharge Cognitive/behavioral status at discharge: oriented Functional status at discharge: uses cane/walker Overall status at discharge: patient is progressing back to baseline Time Spent with Patient Less than 30 minutes Exam Vital Signs (past 8 hours): - 12/17/18 06:00 12/17/18 07:00 Temperature 98.9 F Pulse Rate 65 57 L Respiratory Rate 16 16 Blood Pressure 111/66 118/75 Pulse Oximetry 99 Oxygen Delivery Method Room Air Oxygen Flow Rate 0 Narrative Exam Narrative: Well-developed, well-nourished, no acute distress. Alert and oriented to person, place, and time. Dressing on operative hip is clean, dry, and intact with no signs of drainage. Minimal erythema and generalized swelling around the surgical site. Neurovascularly intact in the operative extremity with a soft and compressible calf. Range of motion of the operative ankle intact. Objective Labs Result Diagrams: 12/17/18 06:06 Labs: Laboratory Results - last 24 hr 12/17/18 06:06 Hgb 11.9 L Hct 35.5 L Discharge Plan Discharge Plan Patient Disposition: Home Discharge Med Rec/Prescriptions Prescriptions: New acetaminophen 325 mg Tablet 975 mg PO TID Qty: 0 RF: 0 aspirin 81 mg Tablet,Delayed Release (Dr/Ec) 81 mg PO BID Qty: 0 RF: 0 docusate sodium 100 mg Capsule 100 mg PO BID Qty: 0 RF: 0 ondansetron 4 mg Tablet,Disintegrating 4 mg PO Q4HR PRN (Reason: Nausea) Qty: 0 RF: 0 oxycodone 5 mg Tablet 5 mg PO Q4-6H PRN (Reason: Pain, Moderate (4-6)) Qty: 0 RF: 0 Continued multivitamin Tablet 1 tab PO DAILY RF: 0 glucosamine sulfate [Glucosamine] 500 mg Tablet 1,500 mg PO DAILY RF: 0 vitamin B complex Tablet 1 tab PO DAILY RF: 0 cholecalciferol (vitamin D3) [Vitamin D3] 2,000 unit Capsule 2,000 unit PO DAILY RF: 0 omega 7-hsj-fbm-fish oil [Fish Oil] 1,000 mg (120 mg-180 mg) Capsule 1,000 mg PO DAILY RF: 0 biotin 5,000 mcg Tablet,Disintegrating 5,000 mcg PO DAILY RF: 0 calcium carbonate [Calcium 600] 600 mg calcium (1,500 mg) Tablet 600 mg PO DAILY RF: 0 Follow up/Referrals: Ryann Wilson MD [Physician] - (In 5-7 days at previously scheduled appointment) Provider Discharge Instructions Diet: Diet as Tolerated Activity: Weight bearing as tolerated, follow anterior hip precautions. Use walker until stable on feet Cold/Heat Therapy: Apply ice to affected area for 20 minutes at a time at least hourly while awake. Skin/Wound/Dressing Care Report to your healthcare provider any signs of infection, such as:: chills, fever, night sweats, increased pain, unusual drainage and unusual redness Dressing: Keep dressing clean, dry, and intact. May shower with it in place but no soaking. Visit Report/Discharge Packet Instructions: DI for Hip Replacement, Ondansetron, Oxycodone Discharge Data Attending Provider: Ryann Wilson Admit Date/Time: 12/16/18 06:09 Discharges patient from system. Discharge Date/Time: 12/17/18 09:42 Quality VTE Deep Vein Thrombosis/Pulmonary Embolism Present on Admission: No
[2018-12-17] MEDS: DOCUSATE 100 MG CAPSULE PO (07:48)
[2018-12-17] MEDS: ACETAMINOPHEN 325 MG TABLET 975 MG PO (07:48)
[2018-12-17] MEDS: FISH OIL 1,000 MG CAPSULE 1000 MG PO (07:48)
[2018-12-17] MEDS: ASPIRIN EC 81 MG TABLET PO (07:49)
[2018-12-17] MEDS: VITAMIN B COMPLEX 1 CAPSULE 1 CAP PO (07:49)
[2018-12-17] MEDS: MULTIVITAMIN 1 TABLET 1 TAB PO (07:49)
[2018-12-17] MEDS: CHOLECALCIFEROL (VITAMIN D3) 1,000 UNIT TABLET 2000 UNIT PO (07:49)
[2018-12-17 07:56] VITALS: TEMP 36.3
--- NOTE | 2018-12-17 09:34 | PT.IPTN ---
Current Diagnoses Unilateral primary osteoarthritis, left hip (12/16/18) Surgery Performed Operation Date: 12/16/18 07:45 Actual Procedures p Total Hip Arthroplasty/Anterior Approach(Left) - Ryann Wilson MD Physical Therapy Treatment Note M2 PT-IP Current Condition Start: 12/16/18 16:21 Freq: NEEDED Status: Active Protocol: Document 12/16/18 16:21 [facility] (Rec: 12/16/18 16:47 AMH [email or web address]) Physical Therapy Current Condition Current Condition Evaluation Date 12/16/18 Treatment Diagnosis Left anterior MAGDALENA Precautions Anterior Hip Precautions No Hip Extension No Hip External Rotation Weight Bearing Status Weight Bearing Status Weight Bear as Tolerated M3 PT-IP Subjective Start: 12/16/18 16:21 Freq: NEEDED Status: Active Protocol: Document 12/17/18 08:54 LJ (Rec: 12/17/18 09:34 LJ [email or web address]) Subjective Physical Therapy Visit Type Type Treatment Note Visit Start Time 08:54 Visit Stop Time 09:19 Total Visit Minutes 25 Notes Pt in chair waiting for PT M4 PT-IP Mobility and Gait Start: 12/16/18 16:21 Freq: NEEDED Status: Active Protocol: Document 12/17/18 08:54 LJ (Rec: 12/17/18 09:34 LJ [email or web address]) PT-Bed Mobility Assessment Supine to Sit Supine to Sit Independent Standby Assistance Sit to Supine Sit to Supine Independent Standby Assistance Scooting Scooting to Edge of Bed Independent Standby Assistance PT-Transfer Assessment Sit to and From Stand Sit to and from Stand Independent Standby Assistance Equipment Transfer Assistive Device Gait Belt Front Wheeled Walker Transfer Ability Level of Assist Independent Standby Assistance Comments Mobility Comments Pt in chair transfers w/SBA. Able to maintain precautions with all activity including pivoting and backwards. Gait Assessment Gait Gait Assistance Required: Standby Assistance Distance (Feet) 270 Able to Maintain Weight Bearing Status Yes During Gait Assistive Devices Assistive Device Gait Belt Front Wheeled Walker Gait Deviations General Gait Pattern Decreased Stride Length Decreased Feet Clearance Factors Limiting Gait Function Factors Limiting Gait Function Decreased Sensation Decreased Strength Comments Gait Comments Pt transfers from chair and bed using proper mechanics for anterior MAGDALENA. Demonstrates proper gait technique and posture w/FWW . Minimal cues for posture, head position and foot clearance. No fatiguing or reporting of pain during activities. Stair Climbing Assessment Evaluation Level of Assist On Stairs Independent Standby Assistance Devices Stair Climbing Assistive Devices Left Railing Right Railing Technique/Endurance Stair Climbing Technique Step to Step Number of Steps Climbed 4 Query Text: Stair Climbing Set # Repetitions (reps) 2 Comments Stair Climbing Comments Pt demonstrates safe climbing and descending technique on stairs. M5 PT-IP Objective Assessments Start: 12/16/18 16:21 Freq: NEEDED Status: Active Protocol: Document 12/16/18 16:21 AMH (Rec: 12/16/18 16:47 AMH [email or web address]) Orientation Orientation/Cognition Level of Alertness Alert Orientation Name Age Birthday Month Date Year Day of Week Place Situation Language Function Ability No Deficits Noted Safety Awareness Understands Safety Issues Memory Description No Deficits Noted Strength Lower Extremity Strength Assessment Left Impaired Sensation Assessment Sensation Gross Sensation Left LE Impaired Comments Sensation Comments still a little numb from nerve block with surgery Muscle Tone Muscle Tone WNL Yes M6 PT-IP Treatment Start: 12/16/18 16:21 Freq: NEEDED Status: Active Protocol: Document 12/17/18 08:54 CANDACE (Rec: 12/17/18 09:34 LJ [email or web address]) Physical Therapy Treatment Education Education Provided Precautions Weight Bearing Status Post-Op Packet Safety Other Treatments Other Treatment Performed static and dynamic posture training infront of mirror M7 PT-IP Assessment and Plan Start: 12/16/18 16:21 Freq: NEEDED Status: Active Protocol: Document 12/17/18 08:54 CANDACE (Rec: 12/17/18 09:34 LJ [email or web address]) PT Summary Assessment and Plan Potential Rehabilitation Potential Excellent Summary Assessment Summary Pt has safely performed gait and stair training demonstrating understanding and adhereance to proper mobility and posture techniques to remain within surgical precautions. Pt met all goals to d/c home. [id number]
== END 2018-12-17 09:42 | disposition home or self-care (01) | DRG 470 ==
PROVIDERS: Admitting Provider Orthopaedic Surgery; Visit Provider Orthopaedic Surgery
PROC: 0SRB02Z Replacement of Left Hip Joint with Metal on Polyethylene Synthetic Substitute, Open Approach (ICD-10-PCS; CPT 27130; principal; 2018-12-16 07:45)
DX: M16.12 Unilateral primary osteoarthritis, left hip (principal); Z96.641 Presence of right artificial hip joint
CPT/HCPCS: 73502; 85014; 85018; 97116; 97161; 97530; C1776; A9270; C9290; J0690; J1100; J2250; J2274; J2405; J3010; J3370

== ENCOUNTER 2021-06-30 10:13 | Emergency (ER) | payer MEDICARE, OTHER, SELFPAY ==
[2018-12-16 12:55] VITALS: BMI 24.5
[2021-06-30] VITALS (8 sets, daily range): BP systolic 134–193; BP diastolic 74–105; PULSE 71–95; RESP 14–59; TEMP 35.6; O2SAT 97–99; BMI 24.0
--- NOTE | 2021-06-30 10:42 | DI.CT.S_ITS ---
PROCEDURE: CT ABDOMEN PELVIS W CON INDICATIONS: pain nausea TECHNIQUE: After the administration of oral and IV contrast, axial sections were acquired from the lung bases to the pubic symphysis. Coronal and sagittal reformats were performed. For radiation dose reduction, the following was used: automated exposure control, adjustment of mA and/or kV according to patient size. COMPARISON: None. FINDINGS: Lower thorax: Minimal left basilar pulmonary scarring present.6 Heart size normal. Small hiatal hernia noted. Liver: Normal in size and attenuation. No contour deformity present. Biliary system: No calcified cholelithiasis or pericholecystic inflammation. No intra or extrahepatic bile duct dilatation. Pancreas: Unremarkable without mass or inflammation evident. Spleen: Normal in size and density. Adrenals: Normal morphology and density. Reproductive system: Unremarkable as visualized. Urinary system: Normal renal size and attenuation. No renal calculi, hydronephrosis, or solid mass present. Urinary bladder unremarkable. Gastrointestinal system: The bowel appears unremarkable with no evidence of bowel obstruction or inflammation. The stomach appears unremarkable. Multiple diverticula arise from the sigmoid :. Focal wall thickening and pericolonic inflammatory change noted in the distal sigmoid colon without evidence of abscess or free air. Appendix: No findings to suggest acute appendicitis. Peritoneal spaces: No mesenteric or retroperitoneal adenopathy. No free air. No free fluid. Vasculature: Aortic atherosclerotic vascular calcification noted without evidence of aneurysm. Musculoskeletal: Normal bone mineralization. Degenerative disc disease and arthropathy noted in lower lumbar spine. Convex right lumbar degenerative scoliosis present. No acute fractures. Abdominal wall intact without evidence of ventral or inguinal hernias. Bilateral total hip arthroplasty limits assessment of the pelvis. IMPRESSION: 1. Acute uncomplicated sigmoid diverticulitis without evidence of abscess or free. No bowel obstruction 2. Small hiatal hernia. 3. Multilevel degenerative disc disease arthropathy Approved by: Arsalan Bee M.D. on 06/30/2021 at 11:40
[2021-06-30] MEDS: ONDANSETRON 4 MG/2 ML INJ IV (11:00)
--- NOTE | 2021-06-30 11:02 | ED.ABDPAIN ---
HPI - Abdominal Pain General Chief Complaint: Abdominal Pain Stated Complaint: possible bowel blockage Time Seen by Provider: 06/30/21 10:33 Source: patient and family Mode of arrival: Ambulatory Limitations: no limitations History of Present Illness HPI narrative: Patient is a 81-year-old female with history of appendectomy, hysterectomy presenting today with abdominal pain that has been ongoing for a couple of weeks but generally worse over the last 3 days. He has not had a bowel movement over last 3 days which is abnormal for her. She is a little nauseous no vomiting. She is concerned that there may be an obstruction. She has no chest pain palpitations shortness of breath. Not had any fever or chills. She says when she tries to bear down and have a bowel movement the pain increases she does not have pressure in her rectum. Related Data Home Medications Medication Instructions Recorded Confirmed biotin 5,000 mcg disintegrating 5,000 mcg PO DAILY 06/14/18 12/16/18 tablet cholecalciferol (vitamin D3) 50 2,000 unit PO DAILY 06/14/18 12/16/18 mcg (2,000 unit) capsule (Vitamin D3) glucosamine sulfate 500 mg tablet 1,500 mg PO DAILY 06/14/18 12/16/18 (Glucosamine) multivitamin 1 tab PO DAILY 06/14/18 12/16/18 omega 8-qjl-vsn-fish oil 1,000 mg 1,000 mg PO DAILY 06/14/18 12/16/18 (120 mg-180 mg) capsule (Fish Oil) vitamin B complex 1 tab PO DAILY 06/14/18 12/16/18 calcium carbonate 600 mg calcium 600 mg PO DAILY 06/15/18 12/16/18 (1,500 mg) tablet (Calcium) Previous Rx's Medication Instructions Recorded acetaminophen 325 mg tablet 975 mg PO TID #0 tab 12/17/18 aspirin 81 mg tablet,delayed 81 mg PO BID #0 tab 12/17/18 release docusate sodium 100 mg capsule 100 mg PO BID #0 cap 12/17/18 ondansetron 4 mg disintegrating 4 mg PO Q4HR PRN #0 tab 12/17/18 tablet oxycodone 5 mg tablet 5 mg PO Q4-6H PRN #0 tab 12/17/18 ciprofloxacin HCl 500 mg tablet 500 mg PO BID #14 tab 06/30/21 (Cipro) metronidazole 500 mg tablet 500 mg PO Q8H #21 tab 06/30/21 (Flagyl) Allergies Allergy/AdvReac Type Severity Reaction Status Date / Time No Known Drug Allergies Allergy Verified 06/15/18 07:02 Review of Systems Review of Systems Narrative: GENERAL: Denies chills, fatigue, malaise, fever, sweats, travel HEENT: Denies sinus pain, ear pain, sore throat, difficulty swallowing, neck pain RESPIRATORY: Denies dyspnea, cough, wheezing, hemoptysis, sputum. CARDIOVASCULAR: Denies chest pain, palpitations, orthopnea, edema GASTROINTESTINAL: See HPI : Denies dysuria, frequency, incontinence, hematuria, urinary retention, flank pain. MUSCULOSKELETAL: Denies weakness, joint pain, or bony pain SKIN: No rash, no erythema, no pruritus NEUROLOGIC: Denies weakness, dizziness, headache, numbness, change in speech, confusion PSYCHIATRIC: No concerning psychosocial issues. 12 point review of systems is negative except for those stated above and HPI Patient History Medical History Arthritis Bilateral hip pain Degenerative joint disease Diverticulitis GERD (gastroesophageal reflux disease) Impaired vision Osteoporosis Pneumonia Postmenopausal Surgical History H/O: History of appendectomy History of colonoscopy History of hysterectomy (~1998) History of thoracotomy (~1996) 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) Social History household members: spouse Smoking Status: Former smoker alcohol intake: current Smoking Status: Former smoker alcohol intake frequency: 0-2 drinks per day Substance Use Type: does not use Exam Initial Vital Signs Initial Vital Signs: Vital Signs Pulse Rate 95 H 06/30/21 10:22 Respiratory Rate 14 06/30/21 10:22 Pulse Oximetry 98 06/30/21 10:22 GENERAL: Alert well-appearing 81-year-old femaleand in no acute distress. HEENT: Head atraumatic,EOMI, pupils reactive, face symmetric, moist mucous membranes CARDIOVASCULAR: Regular rate and rhythm without murmurs, rubs or gallops. RESPIRATORY: Breath sounds equal bilaterally, no wheezes rales or rhonchi. ABDOMEN: Soft, increased bowel sounds no significant distention no localization of pain EXTREMITIES: Normal range of motion, no clubbing or edema. Neurovascularly intact NEUROLOGICAL: Alert and oriented x4.Normal gait and speech. SKIN: Warm, dry, no laceration, no petechiae, no rashes or lesions. Course Orders Ordered: ED Orders 06/30/21 10:35 EKG-12 Lead Stat 06/30/21 10:42 CT abdomen pelvis w con Stat 06/30/21 11:21 Complete Blood Count AUTO DIFF Stat Comprehensive Metabolic Panel Stat Lactate (Lactic Acid) Stat Lipase Stat Discontinued Medications Ondansetron HCl (Ondansetron 4 Mg/2 Ml Inj) 4 mg IV NOW ONE Stop: 06/30/21 10:30 Last Admin: 06/30/21 11:00 Dose: 4 mg Documented by: GISELLE Vital Signs Vital signs: Vital Signs - 8 hr 06/30/21 11:33 06/30/21 12:00 06/30/21 12:30 Pulse Rate 76 72 72 Respiratory Rate 16 17 18 Blood Pressure 148/77 H 134/74 Pulse Oximetry 97 98 97 06/30/21 13:00 Pulse Rate 77 Respiratory Rate 17 Blood Pressure 142/76 H Pulse Oximetry 97 MDM - Abdominal Pain Lab Data Result diagrams: 06/30/21 11:21 06/30/21 11:21 Labs: Lab Results 06/30/21 06/30/21 06/30/21 Range/Units 11:21 11:21 11:21 WBC 8.9 (4.5-11.0) X10^3/uL RBC 4.64 (4.0-5.2) X10^6/uL Hgb 14.1 (12.0-16.0) g/dL Hct 41.7 (36-46) % MCV 89.9 (80-100) fL MCH 30.5 (26-34) PG MCHC 33.9 (30-36) % RDW 13.8 (11.6-14.8) % Plt Count 215 (150-400) X10^3/uL Neut % (Auto) 85.0 H (50-75) % Lymph % (Auto) 9.5 L (25-40) % [place] % (Auto) 4.1 (3-14) % Eos % (Auto) 0.4 L (2-4) % Baso % (Auto) 1.0 (0-2) % Neut # (Auto) 7600 H (8913-4316) /uL Lymph # (Auto) 800 L (2857-4868) /uL [place] # (Auto) 400 (0-900) /uL Eos # (Auto) 0 (0-450) /uL Baso # (Auto) 100 (0-100) /uL Sodium 137 (137-145) mmol/L Potassium 4.3 (3.4-5.1) mmol/L Chloride 103 (98-107) mmol/L Carbon Dioxide 32 (22-32) mmol/L BUN 12 (7-17) mg/dL Creatinine 0.52 (0.52-1.04) mg/dL Estimated GFR > 60.0 (>60) mL/min BUN/Creatinine Ratio 23.1 H (6-22) Glucose 99 (80-110) mg/dL Lactate 0.6 L (0.7-2.1) mmol/L Calcium 9.4 (8.4-10.2) mg/dL Total Bilirubin 0.8 (0.2-1.3) mg/dL AST 43 H (14-36) IU/L ALT 85 H (<35) IU/L Alkaline Phosphatase 138 H (38-126) U/L Total Protein 7.2 (6.3-8.2) g/dL Albumin 4.2 (3.5-5.0) g/dL Globulin 3.0 (1.7-4.1) g/dL Albumin/Globulin Ratio 1.4 (1.0-2.8) Lipase 41 (23-300) U/L Point of care testing: Urine Dip Bedside Urine Glucose Negative Bedside Urine Bilirubin - Negative Bedside Urine Ketone - Negative Urine Specific [place] 1.010 Bedside Urine Occult Blood - Negative Bedside Urine pH 6.5 Bedside Urine Protein - Negative Bedside Urine Urobilinogen - Negative Bedside Urine Nitrite - Negative Bedside Urine Leukocytes - Negative Esterase Imaging Data CT scan - abdomen/pelvis: Radiologist's Impression: PROCEDURE:? CT ABDOMEN PELVIS W CON ? INDICATIONS:? pain nausea ? TECHNIQUE:? After the administration of oral and IV contrast, axial sections were acquired from the lung bases to the pubic symphysis.? Coronal and sagittal reformats were performed.? For radiation dose reduction, the following was used:? automated exposure control, adjustment of mA and/or kV according to patient size. ? COMPARISON:? None. ? FINDINGS: ? Lower thorax:? Minimal left basilar pulmonary scarring present.6? Heart size normal.? Small hiatal hernia noted. ? Liver:? Normal in size and attenuation. No contour deformity present. ? Biliary system:? No calcified cholelithiasis or pericholecystic inflammation. No intra or extrahepatic bile duct dilatation. ? Pancreas:? Unremarkable without mass or inflammation evident. ? Spleen:? Normal in size and density. ? Adrenals:? Normal morphology and density. ? Reproductive system:? Unremarkable as visualized. ? Urinary system:? Normal renal size and attenuation. No renal calculi, hydronephrosis, or solid mass present.? Urinary bladder unremarkable. ? Gastrointestinal system:? The bowel appears unremarkable with no evidence of bowel obstruction or inflammation. The stomach appears unremarkable.? Multiple diverticula arise from the sigmoid :.? Focal wall thickening and pericolonic inflammatory change noted in the distal sigmoid colon without evidence of abscess or free air. ? Appendix:? No findings to suggest acute appendicitis. ? Peritoneal spaces:? No mesenteric or retroperitoneal adenopathy.? No free air.? No free fluid.? ? Vasculature:? Aortic atherosclerotic vascular calcification noted without evidence of aneurysm. ? Musculoskeletal:? Normal bone mineralization.? Degenerative disc disease and arthropathy noted in lower lumbar spine.? Convex right lumbar degenerative scoliosis present.? No acute fractures.? Abdominal wall intact without evidence of ventral or inguinal hernias.? Bilateral total hip arthroplasty limits assessment of the pelvis. ? IMPRESSION: ? 1. Acute uncomplicated sigmoid diverticulitis without evidence of abscess or free.? No bowel obstruction ? 2. Small hiatal hernia.? ? 3. Multilevel degenerative disc disease arthropathy ? ? ? Approved by: Arsalan Bee M.D. on 06/30/2021 at 11:40? ECG Data Interpretation: Normal sinus rhythm rate 79 MD interval 164 QRS [address] changes no T-wave inversion MDM Narrative Medical decision making narrative: Patient has been having ongoing abdominal pain breast was getting worse. CT confirms diverticulitis without complication. She has no leukocytosis. At This time can be managed as an outpatient with antibiotics. Discharge Plan Departure Patient Disposition: Home Clinical Impression: Diverticulitis Instructions: DI for Diverticulitis Activity Restrictions/Additional Instructions: *You have been diagnosed with diverticulitis *What to do: At this time you have a mild diverticulitis which is easily treatable with antibiotics. At this time it is recommended that he have a low-fiber diet until you have healed. Then resume high-fiber diet. Increase water intake. *Continue to take medications as directed--> [facility] Cipro 500 mg twice a day for 7 days Flagyl 500 mg 3 times a day for 7 days *Follow up with your primary care provider in 2-3 days *Return to ER if you should have increasing abdominal pain nausea vomiting or diarrhea or any new, worsening or concerning symptoms Prescriptions: New metronidazole [Flagyl] 500 mg tablet 500 mg PO Q8H Qty: 21 RF: 0 ciprofloxacin HCl [Cipro] 500 mg tablet 500 mg PO BID Qty: 14 RF: 0 No Action multivitamin Tablet 1 tab PO DAILY RF: 0 glucosamine sulfate [Glucosamine] 500 mg Tablet 1,500 mg PO DAILY RF: 0 vitamin B complex Tablet 1 tab PO DAILY RF: 0 cholecalciferol (vitamin D3) [Vitamin D3] 2,000 unit Capsule 2,000 unit PO DAILY RF: 0 omega 7-fns-tpy-fish oil [Fish Oil] 1,000 mg (120 mg-180 mg) Capsule 1,000 mg PO DAILY RF: 0 biotin 5,000 mcg Tablet,Disintegrating 5,000 mcg PO DAILY RF: 0 calcium carbonate [Calcium 600] 600 mg calcium (1,500 mg) Tablet 600 mg PO DAILY RF: 0 acetaminophen 325 mg Tablet 975 mg PO TID Qty: 0 RF: 0 aspirin 81 mg Tablet,Delayed Release (Dr/Ec) 81 mg PO BID Qty: 0 RF: 0 docusate sodium 100 mg Capsule 100 mg PO BID Qty: 0 RF: 0 ondansetron 4 mg Tablet,Disintegrating 4 mg PO Q4HR PRN (Reason: Nausea) Qty: 0 RF: 0 oxycodone 5 mg Tablet 5 mg PO Q4-6H PRN (Reason: Pain, Moderate (4-6)) Qty: 0 RF: 0
[2021-06-30 11:30] LABS: Add Manual Diff / Slide Review NO; Basophils Absolute Auto 100 /uL (0-100); Eosinophils Absolute Auto 0 /uL (0-450); Eosinophils Percent Auto 0.4 % (2-4); Hematocrit 41.7 % (36-46); Hemoglobin 14.1 g/dL (12.0-16.0); Lymphocytes Absolute Auto 800 /uL (1100-4500); Lymphocytes Percent Auto 9.5 % (25-40); Mean Corpuscular HGB Conc 33.9 % (30-36); Mean Corpuscular Hemoglobin 30.5 PG (26-34); Mean Corpuscular Volume 89.9 fL (80-100); Monocytes Absolute Auto 400 /uL (0-900); Monocytes Percent Auto 4.1 % (3-14); Neutrophils Absolute Auto 7600 /uL (1500-7000); Platelet Count 215 X10^3/uL (150-400); Red Blood Cell Count 4.64 X10^6/uL (4.0-5.2); Red Cell Distribution Width 13.8 % (11.6-14.8); White Blood Cell Count 8.9 X10^3/uL (4.5-11.0)
[2021-06-30 11:35] LABS: Alanine Aminotransferase 85 IU/L (<35); Albumin 4.2 g/dL (3.5-5.0); Albumin Globulin Ratio 1.4 (1.0-2.8); Alkaline Phosphatase 138 U/L (38-126); Aspartate Aminotransferase 43 IU/L (14-36); BUN Creatinine Ratio 23.1 (6-22); Bilirubin Total 0.8 mg/dL (0.2-1.3); Blood Urea Nitrogen 12 mg/dL (7-17); Calcium 9.4 mg/dL (8.4-10.2); Carbon Dioxide 32 mmol/L (22-32); Chloride 103 mmol/L (98-107); Estimated Glomerular Filt Rate > 60.0 mL/min (>60); Glucose 99 mg/dL (80-110); HEMOLYSIS < 15 (0-50); Lactate (Lactic Acid) 0.6 mmol/L (0.7-2.1); Lipase 41 U/L (23-300); Potassium 4.3 mmol/L (3.4-5.1); Sodium 137 mmol/L (137-145); Total Protein 7.2 g/dL (6.3-8.2)
== END 2021-06-30 13:20 | disposition home or self-care (01) ==
PROVIDERS: Emergency Provider Emergency Medicine
DX: K57.92 Diverticulitis of intestine, part unspecified, without perforation or abscess without bleeding (principal); R11.0 Nausea; R10.9 Unspecified abdominal pain
CPT/HCPCS: 36415; 74177; 80053; 81003; 83605; 83690; 85025; 93005; 96374; 99284; J2405; Q9967

== ENCOUNTER → 2024-12-12 12:49 | Outpatient (CLI) | payer MEDICARE, OTHER, SELFPAY ==
[2018-12-16 12:55] VITALS: BMI 24.5
--- NOTE | 2024-12-12 12:51 | DI.RAD.S_ITS ---
PROCEDURE: XR DEXA AXIAL SKELETON INDICATIONS: Other specified menopausal disorders COMPARISON: None. FINDINGS: Lumbar Spine: Bone mineral density 1.132 g/cm2, T score 0.8. Left Forearm: Bone mineral density 0.517 g/cm2, T score -3.0. Fracture Risk Calculation (when applicable): Not valid in patients who have bilateral hip arthroplasties. Only valid in patients with osteopenia who have a hip that does not have metal. Additionally, patient is in the osteoporosis category based on left forearm measurement. FRAX is not valid in these cases, as well. (T score greater or equal to -1.0 to: NORMAL) (T score from -1.1 to -2.4: OSTEOPENIA) (T score less than or equal to -2.5: OSTEOPOROSIS) IMPRESSION: 1. By WHO (World Health Organization) criteria, this patient has osteoporosis 2. Fracture Risk Calculation is not utilized in patients with osteoporosis (as well as in patients to do not have a hip without metal). 3. Medical evaluation for secondary causes of low bone density should be considered along with maximizing calcium and vitamin D nutrition. Due to this patient's associated increased 10 year fracture risk, osteoporosis therapy may be indicated. Recommend clinical correlation. Consider repeat DEXA scan in 1 to 2 years. Follow-up guidelines as follows: Osteoporosis: Consider a repeat DEXA and Vertebral Fracture Assessment (VFA) exam in 2 years or sooner if medically necessary, to reassess this patient's status. Osteopenia: Consider a repeat DEXA in 2-3 years to reassess this patient's status, or if there is a new clinical indication. Normal: Consider a repeat DEXA in 5 years or sooner, or if there is a new clinical indication. All treatment decisions require clinical judgment and consideration of individual patient factors, including patient preferences, comorbidities, previous drug use, risk factors not captured in the FRAX model (e.g., frailty, falls, vitamin D deficiency, increased bone turnover, interval significant decline in bone density ) and possible under- or over-estimation of fracture risk by FRAX. In addition, the NOF Guide recommends that FDA-approved medical therapies be considered in postmenopausal women and men age >= 50 years with a: * Hip or vertebral (clinical or morphometric) fracture * T-score of <=-2.5 at the spine or hip * Ten-year fracture probability by FRAX of >= 3% for hip fracture or >=20% for major osteoporotic fracture. Dictated by: Bruno Bob M.D. on 12/12/2024 at 17:41 Approved by: Bruno Bob M.D. on 12/12/2024 at 17:59
== END ==
LOC: RAD 12:50
PROVIDERS: Referring Provider Nurse Practitioner Family; Visit Provider Nurse Practitioner Family
DX: M81.0 Age-related osteoporosis without current pathological fracture (principal); N95.8 Other specified menopausal and perimenopausal disorders
CPT/HCPCS: 77080; 77081

== ENCOUNTER 2024-12-20 11:09 | Emergency (ER) | payer MEDICARE, OTHER, SELFPAY ==
[2018-12-16 12:55] VITALS: BMI 24.5
[2024-12-20] VITALS (11 sets, daily range): BP systolic 120–172; BP diastolic 67–90; PULSE 60–87; RESP 16; TEMP 36.5–37.1; O2SAT 95–98; BMI 24.0
--- NOTE | 2024-12-20 11:21 | EKG_ITS ---
[address] [address] Test Date: 2024-12-20 Pat Name: Khadra Mendez Department: Room: Gender: Female Spanish Interpreter: LISA : 1940 Requested By: Order Number: [id number] Reading MD: Francisco Degroot MD Measurements Intervals Tensed Rate: 69 P: 18 MA: 184 QRS: 65 QRSD: 86 T: 19 QT: 414 QTc: 443 Interpretive Statements Sinus rhythm with premature atrial complexes Electronically Signed On 12-20-2024 11:57:12 PDT by Francisco Degroot MD
[2024-12-20 11:35] LABS: Add Manual Diff / Slide Review NO; Basophils Absolute Auto 0 /uL (0-100); Basophils Percent Auto 0.6 % (0-2); Eosinophils Absolute Auto 0 /uL (0-450); Eosinophils Percent Auto 0.8 % (2-4); Hematocrit 42.6 % (36-46); Hemoglobin 14.5 g/dL (12.0-16.0); Lymphocytes Absolute Auto 1500 /uL (1100-4500); Lymphocytes Percent Auto 25.6 % (25-40); Mean Corpuscular Hemoglobin 30.4 PG (26-34); Mean Corpuscular Volume 89.4 fL (80-100); Monocytes Absolute Auto 300 /uL (0-900); Monocytes Percent Auto 5.8 % (3-14); Neutrophils Absolute Auto 3900 /uL (1500-7000); Neutrophils Percent Auto 67.2 % (50-75); Platelet Count 221 X10^3/uL (150-400); Red Blood Cell Count 4.77 X10^6/uL (4.0-5.2); Red Cell Distribution Width 13.5 % (11.6-14.8); White Blood Cell Count 5.8 X10^3/uL (4.5-11.0)
[2024-12-20 11:50] LABS: Alanine Aminotransferase 34 IU/L (<35); Albumin 4.5 g/dL (3.5-5.0); Albumin Globulin Ratio 1.6 (1.0-2.8); Alkaline Phosphatase 81 U/L (38-126); Aspartate Aminotransferase 41 IU/L (14-36); BUN Creatinine Ratio 21.3 (6-22); Bilirubin Total 0.9 mg/dL (0.2-1.3); Blood Urea Nitrogen 13 mg/dL (7-17); Calcium 9.5 mg/dL (8.4-10.2); Carbon Dioxide 21 mmol/L (22-32); Chloride 104 mmol/L (98-107); Estimated Glomerular Filt Rate > 60 mL/min (>60); Globulin 2.8 g/dL (1.7-4.1); Glucose 105 mg/dL (80-110); HEMOLYSIS < 15 (0-50); Lipase 76 U/L (23-300); Potassium 3.7 mmol/L (3.4-5.1); Sodium 136 mmol/L (137-145); Total Protein 7.3 g/dL (6.3-8.2)
--- NOTE | 2024-12-20 12:39 | ED.ABDPAIN ---
HPI - Abdominal Pain General Chief Complaint: Abdominal Pain Stated Complaint: Per patient, Possible Diverticulitis Time Seen by Provider: 12/20/24 12:34 History of Present Illness HPI narrative: 84-year-old female history of diverticulitis in the remote past presents with left-sided abdominal pain a.long with nausea but no vomiting or diarrhea since Thursday. At the advice of her family doctor recommended to come in to be re-evaluated a to make sure she has no acute diverticulitis at this time. Patient denies back pain hematuria UTI symptoms fever chills body aches chest pain or shortness of breath. Other than what is stated 14 point review of system is negative Related Data Home Medications Medication Instructions Recorded Confirmed biotin 5,000 mcg disintegrating 5,000 mcg PO DAILY 06/14/18 12/16/18 tablet cholecalciferol (vitamin D3) 50 2,000 unit PO DAILY 06/14/18 12/16/18 mcg (2,000 unit) capsule (Vitamin D3) glucosamine sulfate 500 mg tablet 1,500 mg PO DAILY 06/14/18 12/16/18 (Glucosamine) multivitamin 1 tab PO DAILY 06/14/18 12/16/18 omega 6-ihy-phd-fish oil 1,000 mg 1,000 mg PO DAILY 06/14/18 12/16/18 (120 mg-180 mg) capsule (Fish Oil) vitamin B complex 1 tab PO DAILY 06/14/18 12/16/18 calcium carbonate (Calcium 600) 600 mg PO DAILY 06/15/18 12/16/18 Previous Rx's Medication Instructions Recorded acetaminophen 325 mg tablet 975 mg (3 x 325 mg) PO TID #0 tabs 12/17/18 aspirin 81 mg tablet,delayed 81 mg PO BID #0 tabs 12/17/18 release docusate sodium 100 mg capsule 100 mg PO BID #0 caps 12/17/18 ondansetron 4 mg disintegrating 4 mg PO Q4HR PRN Nausea #0 tabs 12/17/18 tablet oxycodone 5 mg tablet 5 mg PO Q4-6H PRN Pain, Moderate 12/17/18 (4-6) #0 tabs ciprofloxacin HCl 500 mg tablet 500 mg PO BID #14 tabs 06/30/21 (Cipro) metronidazole 500 mg tablet 500 mg PO Q8H #21 tabs 10/03/21 (Flagyl) Allergies Allergy/AdvReac Type Severity Reaction Status Date / Time No Known Drug Allergies Allergy Verified 06/15/18 07:02 Patient History Medical History Arthritis Bilateral hip pain Degenerative joint disease Diverticulitis GERD (gastroesophageal reflux disease) Impaired vision Osteoporosis Pneumonia Postmenopausal Surgical History H/O: History of appendectomy History of colonoscopy History of hysterectomy (~1998) History of thoracotomy (~1996) 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) Social History household members: spouse Smoking Status: Former smoker alcohol intake: current Smoking Status: Former smoker alcohol intake frequency: 0-2 drinks per day Exam Initial Vital Signs Initial Vital Signs: Vital Signs Pulse Rate 83 12/20/24 11:17 Blood Pressure 171/84 H 12/20/24 11:17 Pulse Oximetry 95 12/20/24 11:17 Course Orders Ordered: ED Orders 12/20/24 11:21 EKG-12 Lead Stat 12/20/24 11:25 Complete Blood Count AUTO DIFF Stat Comprehensive Metabolic Panel Stat Lipase Stat 12/20/24 14:40 Ammonia (NH3) Stat Complete Blood Count AUTO DIFF Stat Comprehensive Metabolic Panel Stat Lipase Stat 12/20/24 14:41 CT abdomen pelvis w con Stat Discontinued Medications Ondansetron HCl (Ondansetron 4 Mg/2 Ml Inj) 4 mg IV NOW PRN PRN Reason: Nausea And Vomiting Ondansetron HCl (Ondansetron 4 Mg Odt) 4 mg PO NOW PRN PRN Reason: Nausea And Vomiting Vital Signs Vital signs: Vital Signs - 8 hr 12/20/24 11:17 12/20/24 11:18 12/20/24 11:30 Temperature 97.7 F Pulse Rate 83 87 69 Respiratory Rate 16 Blood Pressure 171/84 H 171/84 H 163/90 H Pulse Oximetry 95 97 97 Oxygen Delivery Method Room Air 12/20/24 12:03 12/20/24 12:04 12/20/24 12:30 Temperature Pulse Rate 68 64 Respiratory Rate Blood Pressure 153/80 H 154/81 H Pulse Oximetry 95 97 97 Oxygen Delivery Method 12/20/24 13:00 12/20/24 13:30 12/20/24 13:30 Temperature Pulse Rate 61 60 Respiratory Rate Blood Pressure 130/72 120/72 120/72 Pulse Oximetry 96 96 Oxygen Delivery Method 12/20/24 14:01 12/20/24 14:30 12/20/24 17:24 Temperature 98.7 F Pulse Rate 61 60 66 Respiratory Rate 16 16 Blood Pressure 144/67 H 146/68 H 172/85 H Pulse Oximetry 98 97 98 Oxygen Delivery Method Room Air Room Air MDM - Abdominal Pain Lab Data 12/20/24 11:25 12/20/24 11:25 Labs: Lab Results 12/20/24 Range/Units 11:25 WBC 5.8 (4.5-11.0) X10^3/uL RBC 4.77 (4.0-5.2) X10^6/uL Hgb 14.5 (12.0-16.0) g/dL Hct 42.6 (36-46) % MCV 89.4 (80-100) fL MCH 30.4 (26-34) PG MCHC 34.0 (30-36) % RDW 13.5 (11.6-14.8) % Plt Count 221 (150-400) X10^3/uL Neut % (Auto) 67.2 (50-75) % Lymph % (Auto) 25.6 (25-40) % Potter % (Auto) 5.8 (3-14) % Eos % (Auto) 0.8 L (2-4) % Baso % (Auto) 0.6 (0-2) % Neut # (Auto) 3900 (2632-4720) /uL Lymph # (Auto) 1500 (4371-7731) /uL Potter # (Auto) 300 (0-900) /uL Eos # (Auto) 0 (0-450) /uL Baso # (Auto) 0 (0-100) /uL Sodium 136 L (137-145) mmol/L Potassium 3.7 (3.4-5.1) mmol/L Chloride 104 (98-107) mmol/L Carbon Dioxide 21 L (22-32) mmol/L BUN 13 (7-17) mg/dL Creatinine 0.61 (0.52-1.04) mg/dL Estimated GFR > 60 (>60) mL/min BUN/Creatinine Ratio 21.3 (6-22) Glucose 105 (80-110) mg/dL Calcium 9.5 (8.4-10.2) mg/dL Total Bilirubin 0.9 (0.2-1.3) mg/dL AST 41 H (14-36) IU/L ALT 34 (<35) IU/L Alkaline Phosphatase 81 (38-126) U/L Total Protein 7.3 (6.3-8.2) g/dL Albumin 4.5 (3.5-5.0) g/dL Globulin 2.8 (1.7-4.1) g/dL Albumin/Globulin Ratio 1.6 (1.0-2.8) Lipase 76 (23-300) U/L Point of care testing: Urine Dip Bedside Urine Glucose Negative Bedside Urine Bilirubin - Negative Bedside Urine Ketone - Negative Urine Specific [place] 1.010 Bedside Urine Occult Blood - Negative Bedside Urine pH 6.0 Bedside Urine Protein - Negative Bedside Urine Urobilinogen - Negative Bedside Urine Nitrite - Negative Bedside Urine Leukocytes - Negative Esterase Imaging Data CT scan - abdomen/pelvis: Radiologist's Impression: [place] [address] CT Scan Report Signed Patient: Khadra Mendez MR#: [id number] : 1940 Acct:[id number] Age/Sex: 84 / F Date of Service: 12/20/24 Loc: ED Accession Number: [id number] Procedure: CT abdomen pelvis w con Ordering Provider: Francisco Baldwin D.O. PROCEDURE: CT ABDOMEN PELVIS W CON INDICATIONS: abd pain/ n/v TECHNIQUE: After the administration of intravenous contrast, axial sections acquired from the lung bases to the pubic symphysis. Coronal and sagittal reformats were performed. For radiation dose reduction, the following was used: automated exposure control, adjustment of mA and/or kV according to patient size. COMPARISON: [facility], CT, CT ABDOMEN PELVIS W CON, 06/30/2021, 11:51. FINDINGS: Image quality: Diagnostic. Lower Chest: Small hiatal hernia. ABDOMEN: Liver: No solid mass. Gallbladder: No radiopaque gallstones or wall thickening. Biliary ducts: No biliary dilation. Pancreas: No ductal dilation. Spleen: Size is within normal limits. Adrenal Glands: No adrenal nodules. Kidneys and Ureters: No hydronephrosis. No solid mass. No complex renal cystic lesion which requires follow up. Stomach and Bowel: Normal colonic caliber, without significant wall thickening. Colonic diverticulosis without evidence of diverticulitis. Peritoneum: No abnormal intraperitoneal fluid. No free air. Ventral Wall: No significant ventral hernia. Abdominal Nodes: No retroperitoneal or mesenteric adenopathy by size criteria. Vessels: Aorta and inferior vena cava are normal in size. PELVIS: Pelvic Organs: Unremarkable. Bladder: No bladder wall thickening, accounting for underdistention. Pelvic Nodes: No enlarged lymph nodes. Miscellaneous: No inguinal hernias are seen. Bones: Bilateral hip arthroplasties. Degenerative disc disease of the lumbar spine. IMPRESSION: No acute abnormality. Nonobstructive bowel. Colonic diverticulosis without evidence of diverticulitis. No nephrolithiasis or hydronephrosis. Dictated by: Navid Zarco M.D. on 12/20/2024 at 15:10 Approved by: Navid Zarco M.D. on 12/20/2024 at 15:12 MDM Narrative Medical decision making narrative: All labwork, imaging, ekg, RN note, triage note, medication list, old records from previous visits, vital signs all reviewed. Differential diagnosis includes diverticulitis perforation abscess pancreatitis UTI kidney stone kidney infection. Return with new or worsening symptoms Discharge Plan Departure Patient Disposition: Home Clinical Impression: Diverticulosis Instructions: DI for Diverticulosis Activity Restrictions/Additional Instructions: Return with new or worsening symptoms Prescriptions: No Action multivitamin Tablet 1 tab PO DAILY glucosamine sulfate [Glucosamine] 500 mg Tablet 1,500 mg PO DAILY vitamin B complex Tablet 1 tab PO DAILY cholecalciferol (vitamin D3) [Vitamin D3] 2,000 unit Capsule 2,000 unit PO DAILY omega [id number]-fish oil [Fish Oil] 1,000 mg (120 mg-180 mg) Capsule 1,000 mg PO DAILY biotin 5,000 mcg Tablet,Disintegrating 5,000 mcg PO DAILY calcium carbonate [Calcium 600] 600 mg calcium (1,500 mg) Tablet 600 mg PO DAILY acetaminophen 325 mg Tablet 975 mg PO TID Qty: 0 0RF aspirin 81 mg Tablet,Delayed Release (Dr/Ec) 81 mg PO BID Qty: 0 0RF docusate sodium 100 mg Capsule 100 mg PO BID Qty: 0 0RF ondansetron 4 mg Tablet,Disintegrating 4 mg PO Q4HR PRN (Reason: Nausea) Qty: 0 0RF oxycodone 5 mg Tablet 5 mg PO Q4-6H PRN (Reason: Pain, Moderate (4-6)) Qty: 0 0RF metronidazole [Flagyl] 500 mg tablet 500 mg PO Q8H Qty: 21 0RF ciprofloxacin HCl [Cipro] 500 mg tablet 500 mg PO BID Qty: 14 0RF Stand Alone Forms: Patient Portal/API/Survey
--- NOTE | 2024-12-20 14:41 | DI.CT.S_ITS ---
PROCEDURE: CT ABDOMEN PELVIS W CON INDICATIONS: abd pain/ n/v TECHNIQUE: After the administration of intravenous contrast, axial sections acquired from the lung bases to the pubic symphysis. Coronal and sagittal reformats were performed. For radiation dose reduction, the following was used: automated exposure control, adjustment of mA and/or kV according to patient size. COMPARISON: [facility], CT, CT ABDOMEN PELVIS W CON, 06/30/2021, 11:51. FINDINGS: Image quality: Diagnostic. Lower Chest: Small hiatal hernia. ABDOMEN: Liver: No solid mass. Gallbladder: No radiopaque gallstones or wall thickening. Biliary ducts: No biliary dilation. Pancreas: No ductal dilation. Spleen: Size is within normal limits. Adrenal Glands: No adrenal nodules. Kidneys and Ureters: No hydronephrosis. No solid mass. No complex renal cystic lesion which requires follow up. Stomach and Bowel: Normal colonic caliber, without significant wall thickening. Colonic diverticulosis without evidence of diverticulitis. Peritoneum: No abnormal intraperitoneal fluid. No free air. Ventral Wall: No significant ventral hernia. Abdominal Nodes: No retroperitoneal or mesenteric adenopathy by size criteria. Vessels: Aorta and inferior vena cava are normal in size. PELVIS: Pelvic Organs: Unremarkable. Bladder: No bladder wall thickening, accounting for underdistention. Pelvic Nodes: No enlarged lymph nodes. Miscellaneous: No inguinal hernias are seen. Bones: Bilateral hip arthroplasties. Degenerative disc disease of the lumbar spine. IMPRESSION: No acute abnormality. Nonobstructive bowel. Colonic diverticulosis without evidence of diverticulitis. No nephrolithiasis or hydronephrosis. Dictated by: Navid Zarco M.D. on 12/20/2024 at 15:10 Approved by: Navid Zarco M.D. on 12/20/2024 at 15:12
== END 2024-12-20 17:25 | disposition home or self-care (01) ==
PROVIDERS: Emergency Provider Family Medicine
DX: K57.30 Diverticulosis of large intestine without perforation or abscess without bleeding (principal)
CPT/HCPCS: 36415; 74177; 80053; 81003; 83690; 85025; 93005; 93010; 99284; Q9967